=== PATIENT | female | born 2000 | race Caucasian/White ===

== ENCOUNTER → 2019-06-11 | Outpatient (CLI) | payer OTHER, SELFPAY ==
[2019-06-11 20:21] LABS: Chlamydia Trachomatis by PCR Negative (Negative); Neisserai gonorrhoeae by PCR Negative (Negative); Probe Check PASS; Sample Adequacy Control PASS; Specimen Processing Control PASS
== END | disposition home or self-care (01) ==
PROVIDERS: Referring Provider Obstetrics & Gynecology; Visit Provider Obstetrics & Gynecology
DX: Z11.3 Encounter for screening for infections with a predominantly sexual mode of transmission (principal)
CPT/HCPCS: 87491; 87591

== ENCOUNTER 2019-06-18 05:44 | Day surgery (SDC) | payer OTHER, SELFPAY ==
--- NOTE | 2019-06-17 22:15 | PCM.HP.BLA ---
History and Physical Date of Admission: 06/18/19 HISTORY OF PRESENT ILLNESS: On 06/16/2019, Opal Ochoa, a 18 year old female 0 0 0 0 0, presented for: -- Inevitable Miscarriage, Possible Molar -- U/S shows no IUP but rather tissue c/w possible molar . No pole noted. ALLERGIES: No Known Allergies MEDICATIONS HISTORY: REVIEW OF SYSTEMS: GENERAL - Denies fever, or chills SKIN - Denies skin changes EYES - Denies visual changes EARS - Denies difficulty hearing NOSE - Denies nasal congestion or bleeding MOUTH - Denies sore throat or difficulty swallowing NECK - Denies pain or swelling RESPIRATORY - Denies shortness of breath or wheezing CARDIOVASCULAR - Denies palpitations or chest pain GASTROINTESTINAL - slight nausea GENITOURINARY - Denies dysuria, frequency of urination, incontinence of urine MUSCULOSKELETAL - Denies joint or muscle pain NEUROLOGICAL - Denies localized numbness or weakness PSYCHIATRIC - Denies depression or anxiety ENDOCRINE - Denies heat or cold intolerance, weight loss or gain HEMATO-IMMUNOLOGIC - Denies excesive bleeding with cuts PAST HISTORY: Breast/Ovarian/Colon Cancers - Aunt had Breast Cancer approximately age 40-50 Infections - Had Vaccines Illnesses - asthma Accidents - None History of Abnormal PAPS - Never Hospitalizations - None MENSTRUAL HISTORY: LMP Known?- DefiniteAmount/Duration - 4 days, Regularity - Regular, Frequency - monthly days, LMP - 04/13/19, Age Onset Menarche - 9 PAST PREGNANCIES: Total Pregnancies - 1; Full Term Pregnancies - 0; Premature - 0; Abortions, Induced - 0; Abortions, Spontaneous - 0; Ectopics - 0; Multiple Births - 0; Living Children - 0 FAMILY HISTORY: Aunt - Carcinoma of breast; MaternalGrandparent - Ischemic heart disease; SOCIAL HISTORY: Alcohol Use - None Smoking - Never Diet - no special diet Lifestyle - moderate stress lifestyle and Exercise - active Seat Belt Use - always Employer - [employer] Illicit Drug Use - None Sexual Activity - Spouse-Sig Other Name - Jose Spouse-Sig 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 - PHYSICAL 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 Gestation Weeks: 9 BP Systolic: 110 BP Diastolic: 56 Weight: 117 Urine Dip Protein: - Urine Dip Glucose: - CONSTITUTIONAL - NAD, well nourished, and well developed SKIN - No rash, lesions, or ulcers HEENT - Normocephalic, PERRLA, EOMI NECK - No nodes, no nuchal rigidity and thyroid normal size and texture LYMPH NODES - Palpation of lymph nodes in neck and groins within normal limits LUNGS - CTA x2 without wheezes, crackles or rales CARDIAC - Regular rate and rhythm without rubs, murmurs, or gallops BREAST - No dominant masses, no tenderness, no axillary adenopathy, no nipple discharge, no skin changes ABDOMEN - Without hepatosplenomegaly, distention, masses, rebound, or guarding; normal bowel sounds; no hernias EXTREMITIES - No edema or calf tenderness NEUROLOGICAL - Cranial nerves II-XII grossly intact PSYCHIATRIC - A and O to time, place, person, mood and affect DETAILED PELVIC EXAM External Genital Vagina - non-tender without lesions Urethra/Urethral Meatus - non-tender Bladder - non-tender Vagina - vaginal palomo are pink and moist without loss of rugae and no evidence of atropy Cervix - without cervical motion tenderness and has normal size and features without evident lesions Uterus - enlarged uterus 8 wks, wt 125-150 g Adnexa - clear without massess or tenderness ASSESSMENT: 1. Spon Abort [employer] PLAN BY DIAGNOSIS: 1. Spon Abort [employer] No bleeding yet. Possible molar . Discussed options and plan to proceed with Suction D and E. Discussed RBAs and all questions answered. Essential Procedure Criteria Procedure Essential: Yes Criteria Note: On 05/19/2019 the [facility] [place] of [facility] ([facility]) Public Order signed by [facility] Director Edelmira Landrum M.D., regarding the Management of Non-Essential Surgeries and Procedures for the purpose of preserving Personal Protective Equipment (PPE) and critical hospital capacity and resources within [place] went into effect as of 05/20/2019 at 5:00PM. According to the [facility] Public Order: This action will remain in full force and effect until the State of Emergency declared by the Governor no longer exists or the Director of the [facility] rescinds or modifies this Order.. This [facility] order stated all non-essential or elective surgeries and procedures that utilize PPE should be delayed unless there is undue risk to the current or future health of a patient. After reviewing the aforementioned [facility] Public Order and the patients clinical case, I have determined that the scheduled procedure meets the criteria to go forward. Risk to Patient if Procedure Delayed: Risk of metastasis or progression of staging
[2019-06-18] VITALS (7 sets, daily range): BP systolic 101–111; BP diastolic 60–78; PULSE 50–80; RESP 16; TEMP 36.3–36.8; O2SAT 100; BMI 20.5
--- NOTE | 2019-06-18 | POC_PTH ---
PATIENT: HEMA JIANG LOC: [facility] U#:[id number] AGE/SX: 18/F ROOM: RE06/18/[address]: Dr. Regan Pink MD : [id number] BED: DIS: 06/18/2019 SPEC #: [id number] RECD: 06/19/19 10:46 STATUS: SONYA REYariel #: [id number] COLUMBA: 06/18/19 00:[address]: Regan Pink DEPT: SURGICAL PATHOLOGY RECD BY: Surjit Tong ENTERED: 06/19/19 10:46 SP TYPE: PROD CONC OTHR DR: No Primary Care Phys Tissues: Product of conception, NOS Procedures: Surgery Specimen Level IV HEADER OPERATION: Dilation and evacuation, suction PRE-OP DIAGNOSIS: Spontaneous ; possible molar TISSUE SUBMITTED: Products of conception MICROSCOPIC DIAGNOSIS Endometrium, curettage: Chorionic villi with hydropic change, decidualized stroma and trophoblastic cells consistent with products of conception. See Comment. AM:kendell 06/22/19 COMMENT The findings are consistent with partial mole. Clinical correlation is suggested. Case has been reviewed in consultation with Dr. Landis who concurs with the above diagnosis. IDC:FELIPE MICROSCOPIC DESCRIPTION Slides are reviewed. GROSS DESCRIPTION Received in fixative is one container labeled with the patient's name and designated products of conception. The specimen consists of multiple fragments of pink, hemorrhagic soft tissue that in aggregate measure 8 x 9 x 1.5 cm. tissue is not identified. Right Of Way Appraiser tissue is totally submitted in three cassettes. / SJ:kendell 06/19/19 TC:5 CPT:
[2019-06-18 06:21] LABS: Hematocrit 37.3 % (37-47); Hemoglobin 13.4 g/dL (12.0-15.0); Mean Corp Hgb Conc 35.9 g/dL (32-36); Mean Corpuscular Hgb 30.3 pg (27.0-32.0); Mean Corpuscular Volume 84.4 fL (81-99); Mean Platelet Vol. 8.9 fl (6.2-12.0); Platelet Count 244 K/mm3 (150-450); RBC Distribution Width CV 13.1 % (11.6-14.6); RBC Distribution Width SD 39.8 fl (35.1-43.9); Red Blood Count 4.42 M/mm3 (4.2-5.4); White Blood Count 7.1 K/mm3 (4.4-11.0)
[2019-06-18] MEDS: Lactated Ringers 1,000 ML 100 ML IV (06:40)
[2019-06-18 07:00] LABS: hCG Titer Quant., Serum 64019 mIU/mL (1-3)
--- NOTE | 2019-06-18 07:22 | PCM.OPRPT ---
Report of Operation Date of Procedure: 06/18/19 Pre-Operative Diagnosis: Inevitable Miscarriage, Possible More Post-Operative Diagnosis: Inevitable Miscarriage, Possible More Surgery/Procedure Performed:: Suction Dilation and Evacuation Description of Surgical Findings:: 8 cm endometrial cavity with products of conception. Type of Anesthesia:: MAC Anesthesiologist: Catarino Arreola Specimen's removed: Products of conception Estimated Blood Loss (mL): Minimal Fluids Replaced: Crystalloid Description of Procedure: Surgeon: Regan Pink MD, FACOG Indication: 18 year patient with incomplete AB at 9 weeks gestation with ultrasound showing possible molar . No pole is noted.. Pt has been counseled regarding the risks, benefits, and alternatives of this procedure and all questions were answered. Procedure: Patient was taken to the operating room where she was given IV sedation. The patient was prepped and draped in the usual sterile fashion. The anterior cervix was grasped with a tenaculum and cervix was dilated. An 8 mm suction curette was inserted into the cervix and all contents removed. Uterus was gently curetted and remaining tissue was removed by reinserting the suction curette. The uterus was then gently curetted and it was confirmed that all tissue had been removed. The patient tolerated the procedure well and was taken to the recovery room in satisfactory condition. Sponge, instruments and needle counts were all correct. There were no apparent complications of the surgery. Grafts/Implants Used: None - Complications None - Admit VTE Documentation VTE Present on Admission: Yes VTE Mechan Device Prophylaxis: SCD's
--- NOTE | 2019-06-18 07:25 | DCINST_ITS ---
Discharge Diet: No Restrictions Discharge Activity: Return to Normal Activity, May Shower, May Take a Tub Bath May resume sexual activity in: 2 weeks Call your doctor if you observe: Fever of 101 or Higher, Inability to urinate, Inability to have a bowel movement, Using more than one pad per hour Additional Instructions: Okay to use ibuprofen or Tylenol as needed at home for crampiness. Allergies/Adverse Reactions: Allergies No Known Allergies Allergy (Verified 06/18/19 06:26) Medications to take at Discharge Folic Acid 0.4 mg PO DAILY@0800 06/17/19 Pnv No.95/Ferrous Fum/Folic AC [ Caplet] 1 ea PO DAILY 06/17/19 Primary Care Physician: Care Physician,No Primary [Primary Care Provider] - Test Results: Test results from this visit will be discussed in further detail at your follow- up appointment, if applicable. Please Follow Up With: Regan Pink MD When: 2 to 3 weeks
--- NOTE | 2019-06-18 09:55 | SUR.PHASEII ---
IV bag with Pitocin from OR completed infusing
== END 2019-06-18 09:56 | disposition home or self-care (01) ==
LOC: SDC 05:49 → AC 05:49
PROVIDERS: Referring Provider Obstetrics & Gynecology; Visit Provider Obstetrics & Gynecology
PROC: (CPT 59812; principal; 2019-06-18 07:15)
DX: O03.4 Incomplete spontaneous abortion without complication (principal)
CPT/HCPCS: 59812; 84702; 85027; 86850; 86900; 86901; 88305; J7120

== ENCOUNTER → 2019-06-25 10:10 | Outpatient (CLI) | payer OTHER, SELFPAY ==
[2019-06-18 06:32] VITALS: BMI 20.5
[2019-06-25 12:51] LABS: hCG Titer Quant., Serum 1329 mIU/mL (1-3)
== END ==
PROVIDERS: Referring Provider Obstetrics & Gynecology; Visit Provider Obstetrics & Gynecology
DX: O08.89 Other complications following an ectopic and molar pregnancy (principal); N91.2 Amenorrhea, unspecified; Z3A.00 Weeks of gestation of pregnancy not specified
CPT/HCPCS: 36415; 84702

== ENCOUNTER 2019-07-02 14:09 | Outpatient (RCR) | payer OTHER, SELFPAY ==
[2019-06-18 06:32] VITALS: BMI 20.5
[2019-07-02 16:11] LABS: hCG Titer Quant., Serum 247 mIU/mL (1-3)
== END 2019-07-02 18:00 | disposition home or self-care (01) ==
LOC: LAB 14:09
PROVIDERS: Referring Provider Obstetrics & Gynecology; Visit Provider Obstetrics & Gynecology
DX: N91.2 Amenorrhea, unspecified (principal); O02.0 Blighted ovum and nonhydatidiform mole
CPT/HCPCS: 36415; 84702

== ENCOUNTER 2019-07-30 14:19 | Outpatient (RCR) | payer OTHER, SELFPAY ==
[2019-06-18 06:32] VITALS: BMI 20.5
[2019-07-09 14:06] LABS: hCG Titer Quant., Serum 54 mIU/mL (1-3)
[2019-07-16 10:58] LABS: hCG Titer Quant., Serum 16 mIU/mL (1-3)
[2019-07-23 15:35] LABS: hCG Titer Quant., Serum 7 mIU/mL (1-3)
[2019-07-30 15:42] LABS: Internal QC Validated? YES +Cl - CLEAR BKGD; Pregnancy, Serum, hCG Quali. NEGATIVE Negative
== END 2019-07-30 18:00 | disposition home or self-care (01) ==
LOC: LAB 14:19
PROVIDERS: Referring Provider Obstetrics & Gynecology; Visit Provider Obstetrics & Gynecology
DX: N91.2 Amenorrhea, unspecified (principal)
CPT/HCPCS: 36415; 84702; 84703

== ENCOUNTER 2019-08-31 09:52 | Outpatient (RCR) | payer OTHER, SELFPAY ==
[2019-06-18 06:32] VITALS: BMI 20.5
[2019-08-31 11:12] LABS: hCG Titer Quant., Serum < 1 mIU/mL (1-3)
== END 2019-08-31 18:00 | disposition home or self-care (01) ==
LOC: LAB 09:52
PROVIDERS: Referring Provider Obstetrics & Gynecology; Visit Provider Obstetrics & Gynecology
DX: N91.2 Amenorrhea, unspecified (principal)
CPT/HCPCS: 36415; 84702

== ENCOUNTER → 2019-12-14 18:04 | Outpatient (CLI) | payer OTHER, SELFPAY ==
[2019-06-18 06:32] VITALS: BMI 20.5
== END ==
PROVIDERS: Referring Provider Obstetrics & Gynecology; Visit Provider Obstetrics & Gynecology
DX: O98.519 Other viral diseases complicating pregnancy, unspecified trimester (principal); U07.1 COVID-19; Z3A.00 Weeks of gestation of pregnancy not specified
CPT/HCPCS: 87635; C9803; U0003

== ENCOUNTER → 2020-02-01 11:04 | Outpatient (CLI) | payer OTHER, SELFPAY ==
[2019-06-18 06:32] VITALS: BMI 20.5
[2020-02-09 20:56] LABS: CF, Screen Comment: (.)
== END ==
PROVIDERS: Visit Provider Obstetrics & Gynecology
DX: Z34.82 Encounter for supervision of other normal pregnancy, second trimester (principal); Z82.79 Family history of other congenital malformations, deformations and chromosomal abnormalities
CPT/HCPCS: 36415; 81220

== ENCOUNTER 2020-06-10 05:15 | Inpatient (IN) | payer OTHER, SELFPAY ==
[2019-06-18 06:32] VITALS: BMI 20.5
[2020-06-10] VITALS (26 sets, daily range): BP systolic 97–127; BP diastolic 48–91; PULSE 48–94; RESP 16; TEMP 36.5–37.1; O2SAT 98–99; BMI 25.0
[2020-06-10 04:40] LABS: Color, Urine Yellow (Yellow); Glucose, Dipstick Normal (Normal); Ketone-Dipstick Negative (Negative); Leukocyte Esterase-Dipstick Negative /ul (Negative); Nitrite-Dipstick Negative (Negative); Occult Blood-Urine Negative /ul (Negative); Protein-Dipstick Negative (Negative); Specific Gravity, Urine 1.005 (1.002-1.030); Urine Bilirubin Dipstick Negative (Negative); Urine Clarity Clear (Clear); Urine Urobilinogen Normal (Normal)
[2020-06-10 05:04] LABS: ROM Internal Control Test YES-OK TO RESULT pt. (Internal QC)
[2020-06-10 05:06] LABS: ROM Patient Test POSITIVE (Negative)
[2020-06-10] MEDS: Lactated Ringers 1,000 ML 50 ML IV (05:16)
[2020-06-10 05:32] LABS: Absolute Lymphocyte Count 1.77 X10^3/uL (0.83-4.51); Absolute Neutrophil Count 7.6 X10^3/uL (2.0-7.7); Basophil# 0.03 X10^3/uL; Basophil% 0.3 % (0-1); Eosinophil# 0.07 X10^3/uL; Eosinophils% 0.7 % (0-5); Hematocrit 33.4 % (37-47); Hemoglobin 11.4 g/dL (12.0-15.0); Lymphocyte # 1.77 X10^3/ul (4.0); Lymphocyte % 16.9 % (19-41); Mean Corp Hgb Conc 34.1 g/dL (32-36); Mean Corpuscular Hgb 30.3 pg (27.0-32.0); Mean Corpuscular Volume 88.8 fL (81-99); Mean Platelet Vol. 9.2 fl (6.2-12.0); Monocyte# 0.89 X10^3/uL; Monocyte% 8.5 % (0-10); NRBC Flagged by Analyzer 0 % (0-5); Neutrophil # 7.63 X10^3/uL (2.7-7.7); Neutrophil % 72.6 % (47-70); Platelet Count 249 K/mm3 (150-450); RBC Distribution Width CV 12.9 % (11.6-14.6); RBC Distribution Width SD 42.1 fl (35.1-43.9); Red Blood Count 3.76 M/mm3 (4.2-5.4); White Blood Count 10.5 K/mm3 (4.4-11.0)
[2020-06-10] MEDS: Betamethasone/Betamethasone 30 MG/5 ML Vial 12 MG IM (06:14)
[2020-06-10 07:26] LABS: Group B Strep DNA By PCR Negative (Negative); Internal Control PASS; Probe Check PASS; Specimen Processing Control PASS
--- NOTE | 2020-06-10 07:40 | PCM.HPOB.BLA ---
History and Physical Chief complaint: Leakage of fluid History of present illness: 19-year-old G2, P0 at 34 weeks and 1 day with MAXIMUS: 07/22/2019 1 x 10-week ultrasound arrives with leakage of clear fluid. Denies headache, visual changes, chest pain, shortness of breath, nausea, vomiting, right upper quadrant pain. Patient states good movement. complicated by partial mole and 06/18/2019 and patient did not wait the 6-month or 12-month interval between pregnancies after molar Obstetric history: G1: 9-week partial mole 06/18/2019 G2: Current Past medical history: None Medications: vitamin Past surgical history: D&C, wisdom teeth extraction Allergies: No known drug allergies Social history: Denies smoking, alcohol, drug use Family history: Denies history DVT or PE Review of systems: Besides above pertinent positives a full review of systems was performed and found to be negative Physical exam: Vital Signs Temp Pulse BP Pulse Ox 06/10/20 08:31 83 113/65 06/10/20 07:52 98.3 F 06/10/20 07:14 98.3 F 67 108/66 98 06/10/20 06:20 98.8 F 86 110/66 99 06/10/20 04:08 86 110/71 General: Normal-appearing no acute distress HEENT: Normocephalic atraumatic no cervical of adenopathy Cardiac/respiratory: Nonlabored breathing no use of accessory muscles Abdomen: Soft, nontender, gravid Extremities: No peripheral edema normal peripheral pulses Psych: Normal affect normal demeanor nonpressured speech Mom's Microbiology 06/10/20 Unknown Genital vaginal Group B Streptococcus Culture - Pending 06/10/20 04:30 Mucosa - Nose SARS-CoV-2 Antigen (Rapid) - Final Mom's Labs & Results 06/10/20 06/10/20 06/10/20 04:15 04:25 04:30 WBC RBC Hgb Hct MCV MCH MCHC RDW Std Deviation RDW Coeff of Terence Plt Count MPV Immature Gran % (Auto) Neut % (Auto) Lymph % (Auto) Clinch % (Auto) Eos % (Auto) Baso % (Auto) Absolute Neuts (auto) Absolute Lymphs (auto) Nucleated RBC % Urine Color Yellow Urine Clarity Clear Urine pH 7.0 Ur Specific [place] 1.005 Urine Protein Negative Urine Glucose (UA) Normal Urine Ketones Negative Urine Occult Blood Negative Urine Nitrite Negative Urine Bilirubin Negative Urine Urobilinogen Normal Ur Leukocyte Esterase Negative Vag Amniotic Fld Detect POSITIVE H Group B Strep DNA Negative Specimen Comment Not Reportable Blood Type Antibody Screen 06/10/20 06/10/20 05:16 05:16 WBC 10.5 RBC 3.76 L Hgb 11.4 L Hct 33.4 L MCV 88.8 MCH 30.3 MCHC 34.1 RDW Std Deviation 42.1 RDW Coeff of Terence 12.9 Plt Count 249 MPV 9.2 Immature Gran % (Auto) 1.000 H Neut % (Auto) 72.6 H Lymph % (Auto) 16.9 L Clinch % (Auto) 8.5 Eos % (Auto) 0.7 Baso % (Auto) 0.3 Absolute Neuts (auto) 7.6 Absolute Lymphs (auto) 1.77 Nucleated RBC % 0 Urine Color Urine Clarity Urine pH Ur Specific [place] Urine Protein Urine Glucose (UA) Urine Ketones Urine Occult Blood Urine Nitrite Urine Bilirubin Urine Urobilinogen Ur Leukocyte Esterase Vag Amniotic Fld Detect Group B Strep DNA Specimen Comment Blood Type A POSITIVE Antibody Screen NEGATIVE Labs Blood Type: A RH: POSITIVE RPR/VDRL/Syphilis Nonreactive Rubella status Non-immune HbSAg Negative Date Done: 12/24/19 Chlamydia Negative Gonorrhea Negative HIV/AIDS Non-Reactive Group B Strep: Collected on Admission Assessment and plan: 19-year-old G2, P0 at 34 weeks and 1 day with premature rupture of membranes Admit labor and delivery CEFM GBS unknown: To start penicillin even with negative NAAT per guidelines. Discussed with pediatricians PPROM: Needs induction/augmentation via Pitocin with gestational age 34 weeks. To contact performance architect. Educated patient on delivery/ infant. Routine orders Anesthesia to see
[2020-06-10] MEDS: Oxytocin 30 units/NS 500 ml 30 UNITS/500 ML IV.SOLN IV (08:30)
[2020-06-10] MEDS: Oxytocin 30 units/NS 500 ml 30 UNITS/500 ML IV.SOLN 334 UNITS IV (15:08)
--- NOTE | 2020-06-10 16:09 | PCM.OPRPT ---
Vaginal Delivery Maternal Presentation: Spontaneous Rupture of Membranes Amniotic Membrane Rupture Type: Spontaneous at home Amniotic Fluid Description: Clear Final MAXIMUS: 07/21/20 Final MAXIMUS Source: US <20 weeks Gestational age: 34 Weeks and 1 Days [place] doctor who attended delivery (if requested by OB): Wicho Lebron - 34 wks gestation Date of Procedure: 06/10/20 Pre-Operative Diagnosis: IUP, PPROM Post-Operative Diagnosis: IUP, PPROM Surgery/ Procedure Performed: Spontaneous Vaginal Delivery Type of Anesthesia: None Description of Procedure: Spontaneous vaginal delivery of a viable female with Apgars of 7/9 from an occiput anterior presentation with clear amniotic fluid and normal three-vessel placenta. First-degree midline episiotomy extended to a second-degree midline laceration repaired in layers with 3-0 Rapide suture under local. Sponges okay. Delivery physician: Regan Pink MD. Presentation: Vertex Placental Delivery Description: Spontaneous Placenta Disposition: [facility] Cord Vessel Description: 3 Vessels Cord Entanglement: Around neck x 1, loose Estimated Blood Loss: 250 cc Infant A gender: Female (1 minute): 7 (5 minute): 9 Episiotomy Description: Midline, 1st degree Laceration: Midline, 2nd degree Medications given after delivery: IV Pitocin Complications: None
--- NOTE | 2020-06-10 16:15 | DCINST_ITS ---
Discharge Diet: No Restrictions Discharge Activity: May Shower, May Take a Tub Bath May resume sexual activity in: 4-6 weeks Additional Activity Instructions:: Nothing in the vagina for 4-6 weeks. You may return to work/school in 6 weeks. Call your doctor if you observe: Inability to urinate, Inability to have a bowel movement, Using more than one pad per hour Additional Instructions: If you experience any of the following, contact your healthcare provider. * Bleeding that soaks a pad every hour for 2 hours * Fever 100.4 or higher * Unrelieved incision or abdominal pain * Swelling, redness, discharge or bleeding from your incision or episiotomy site * Your incision begins to separate * Problems urinating (including inability to urinate or burning while urinating). * Visual changes * Severe headache * Flu-like symptoms * Pain or redness in one of both of your breasts * Pain, warmth, tenderness or swelling in your legs, especially the calf area * Frequent nausea and vomiting * Symptoms of depression or anxiety If you experience any of the following, call 911 or go to the nearest Emergency Room. * Chest pain * Problems breathing * Seizure activity * Partial or complete paralysis of a body part, slurred speech, weakness or drooping of the face, or a sudden inability to walk or hold your balance Allergies/Adverse Reactions: Allergies No Known Allergies Allergy (Verified 06/18/19 06:26) Please Follow Up With: Regan Pink MD - [phone] When: Call to make an appointment with your doctor in 6 weeks. Primary Care Physician: Care Physician,No Primary [Primary Care Provider] - Test Results: Test results from this visit will be discussed in further detail at your follow- up appointment, if applicable.
--- NOTE | 2020-06-10 16:15 | PCM.DCVAG ---
Discharge Diet: No Restrictions Discharge Activity: May Shower, May Take a Tub Bath May resume sexual activity in: 4-6 weeks Additional Activity Instructions:: Nothing in the vagina for 4-6 weeks. You may return to work/school in 6 weeks. Call your doctor if you observe: Inability to urinate, Inability to have a bowel movement, Using more than one pad per hour Additional Instructions: If you experience any of the following, contact your healthcare provider. Bleeding that soaks a pad every hour for 2 hours Fever 100.4 or higher Unrelieved incision or abdominal pain Swelling, redness, discharge or bleeding from your incision or episiotomy site Your incision begins to separate Problems urinating (including inability to urinate or burning while urinating). Visual changes Severe headache Flu-like symptoms Pain or redness in one of both of your breasts Pain, warmth, tenderness or swelling in your legs, especially the calf area Frequent nausea and vomiting Symptoms of depression or anxiety If you experience any of the following, call 911 or go to the nearest Emergency Room. Chest pain Problems breathing Seizure activity Partial or complete paralysis of a body part, slurred speech, weakness or drooping of the face, or a sudden inability to walk or hold your balance Allergies/Adverse Reactions: Allergies No Known Allergies Allergy (Verified 06/18/19 06:26) Please Follow Up With: Regan Pink MD - [phone] When: Call to make an appointment with your doctor in 6 weeks. Primary Care Physician: Care Physician,No Primary [Primary Care Provider] - Test Results: Test results from this visit will be discussed in further detail at your follow-up appointment, if applicable.
[2020-06-10] MEDS: Ibuprofen 600 MG Tablet PO ×2 (16:28→23:51)
[2020-06-10] MEDS: 0.9% Saline Lock 10 ML Syringe IV (18:06)
--- NOTE | 2020-06-10 20:28 | NURSING ---
IBCLC round, mother report she feels very comfortable with the pumping equipment and plans to set an alarm and pump every 3 hours and dad plans to bring the milk to nursery right away (SCN) will continue to round and provide support as needed. Using a 21mm pump flange for pumping
[2020-06-10] MEDS: Acetaminophen 500 MG Tablet 1000 MG PO (21:30)
[2020-06-11 04:10] VITALS: BP 87/57; PULSE 48; RESP 16; TEMP 36.6
[2020-06-11] MEDS: Ibuprofen 600 MG Tablet PO ×2 (06:32→12:33)
[2020-06-11 08:30] VITALS: BP 97/61; PULSE 57; RESP 16; TEMP 36.4; O2SAT 97
[2020-06-11] MEDS: Acetaminophen 500 MG Tablet 1000 MG PO ×2 (08:50→17:19)
--- NOTE | 2020-06-11 09:07 | PCM.PN.OB ---
Subjective: Patient without complaints. Pumping for baby in special care nursery. Minimal vaginal bleeding reported. - Physical Exam Vitals/I&O's: Vital Signs Temp Pulse Resp BP Pulse Ox 97.5 F L 57 L 16 97/61 97 06/11/20 08:30 06/11/20 08:30 06/11/20 08:30 06/11/20 08:30 06/11/20 08:30 Oxygen Delivery Method Room Air Weight: 146 lb Body Mass Index (BMI) 25.0 Intake and Output for Last 24 Hours 06/09/20 06/10/20 06/11/20 23:59 23:59 23:59 Intake Total 2245.82 / 2245.82 Output Total 850 / 850 Balance 1395.82 / 1395.82 Microbiology Past 72 Hours 06/10/20 04:30 Mucosa - Nose SARS-CoV-2 Antigen (Rapid) - Final Current Medications Acetaminophen (Acetaminophen 500 Mg Tablet) 1,000 mg PO Q8H PRN PRN PRN Reason: Pain Score 1-3 Last Admin: 06/11/20 08:50 Dose: 1,000 mg Documented by: Bisacodyl (Bisacodyl 10 Mg Suppository) 10 mg RC UD PRN PRN Reason: If no BM Dibucaine (Dibucaine 30 Gm Tube) 1 applic TOPICAL TID PRN PRN; Protocol PRN Reason: Discomfort Hydrocortisone (Hydrocortisone 2.5% Crm) 1 applic TOPICAL TID PRN PRN; Protocol PRN Reason: Discomfort Ibuprofen (Ibuprofen 600 Mg Tablet) 600 mg PO Q6H PRN PRN PRN Reason: Pain Score 1-3 Last Admin: 06/11/20 06:32 Dose: 600 mg Documented by: Measles/Mumps/Rubella Vaccine Live (Measles,Mumps&Rubella Vaccine 0.5 Ml Vial) 0.5 ml SC .ONCE ONE Stop: 06/11/20 10:01 Last Admin: 06/11/20 08:51 Dose: 0.5 ml Documented by: Methylergonovine Maleate (Methylergonovine 0.2 Mg/Ml Ampul) 0.2 mg IM X1 PRN PRN Reason: Excess bleeding/uterine atony Ondansetron HCl (Ondansetron 4 Mg/2 Ml Vial) 4 mg IV Q4H PRN PRN PRN Reason: Nausea Oxycodone HCl (Oxycodone 5 Mg Tablet) 5 - 10 mg PO Q4H PRN PRN PRN Reason: Pain Score 4-10 Senna/Docusate Sodium (Senna/Docusate Sodium 1 Tablet) 1 - 2 tablet PO DAILY PRN PRN PRN Reason: Constipation Simethicone (Simethicone 80 Mg Tablet) 80 mg PO PCHS PRN PRN Reason: Indigestion/Stomach pain Sodium Chloride (0.9% Saline Lock 10 Ml Syringe) 5 - 15 ml IV UD PRN PRN Reason: SALINE FLUSH Last Admin: 06/10/20 18:06 Dose: 10 ml Documented by: Zolpidem Tartrate (Zolpidem Tartrate 5 Mg Tablet) 5 mg PO QHS PRN PRN PRN Reason: Insomnia Medical Necessity - Tobacco Use Smoking Status: Never smoker Assessment/Plan Doing well post day #1 status post routine spontaneous vaginal delivery at 34+ weeks gestation. Continuing present care.
[2020-06-11 12:38] VITALS: BP 94/37; PULSE 51; RESP 14; TEMP 36.2; O2SAT 99
[2020-06-11 16:00] VITALS: BP 103/57; PULSE 59; RESP 16; TEMP 36.1
[2020-06-11 20:10] VITALS: BP 99/58; PULSE 61; RESP 16; TEMP 36.8
[2020-06-12 02:00] VITALS: BP 100/53; PULSE 66; RESP 16; TEMP 36.9
[2020-06-12] MEDS: Ibuprofen 600 MG Tablet PO ×2 (06:04→12:37)
[2020-06-12 08:00] VITALS: BP 97/58; PULSE 74; RESP 18; TEMP 36.3; O2SAT 97
--- NOTE | 2020-06-12 09:16 | PN.OBGYN_ITS ---
Subjective: Patient without complaints. Pumping going well. Minimal vaginal bleeding. Ready to be discharged to [facility] status. - Physical Exam Vitals/I&O's: Vital Signs Temp Pulse Resp BP Pulse Ox 97.4 F L 74 18 97/58 L 97 06/12/20 08:00 06/12/20 08:00 06/12/20 08:00 06/12/20 08:00 06/12/20 08:00 Oxygen Delivery Method Room Air Weight: 146 lb Body Mass Index (BMI) 25.0 Intake and Output for Last 24 Hours 06/10/20 06/11/20 06/12/20 23:59 23:59 23:59 Intake Total 2245.82 / 2245.82 Output Total 850 / 850 Balance 1395.82 / 1395.82 Microbiology Past 72 Hours 06/10/20 04:30 Mucosa - Nose SARS-CoV-2 Antigen (Rapid) - Final Current Medications Acetaminophen (Acetaminophen 500 Mg Tablet) 1,000 mg PO Q8H PRN PRN PRN Reason: Pain Score 1-3 Last Admin: 06/11/20 17:19 Dose: 1,000 mg Documented by: Bisacodyl (Bisacodyl 10 Mg Suppository) 10 mg RC UD PRN PRN Reason: If no BM Dibucaine (Dibucaine 30 Gm Tube) 1 applic TOPICAL TID PRN PRN; Protocol PRN Reason: Discomfort Hydrocortisone (Hydrocortisone 2.5% Crm) 1 applic TOPICAL TID PRN PRN; Protocol PRN Reason: Discomfort Ibuprofen (Ibuprofen 600 Mg Tablet) 600 mg PO Q6H PRN PRN PRN Reason: Pain Score 1-3 Last Admin: 06/12/20 06:04 Dose: 600 mg Documented by: Methylergonovine Maleate (Methylergonovine 0.2 Mg/Ml Ampul) 0.2 mg IM X1 PRN PRN Reason: Excess bleeding/uterine atony Ondansetron HCl (Ondansetron 4 Mg/2 Ml Vial) 4 mg IV Q4H PRN PRN PRN Reason: Nausea Oxycodone HCl (Oxycodone 5 Mg Tablet) 5 - 10 mg PO Q4H PRN PRN PRN Reason: Pain Score 4-10 Senna/Docusate Sodium (Senna/Docusate Sodium 1 Tablet) 1 - 2 tablet PO DAILY PRN PRN PRN Reason: Constipation Simethicone (Simethicone 80 Mg Tablet) 80 mg PO PCHS PRN PRN Reason: Indigestion/Stomach pain Sodium Chloride (0.9% Saline Lock 10 Ml Syringe) 5 - 15 ml IV UD PRN PRN Reason: SALINE FLUSH Last Admin: 06/10/20 18:06 Dose: 10 ml Documented by: Zolpidem Tartrate (Zolpidem Tartrate 5 Mg Tablet) 5 mg PO QHS PRN PRN PRN Reason: Insomnia Medical Necessity - Tobacco Use Smoking Status: Never smoker Assessment/Plan Doing well day #2 status post routine spontaneous vaginal delivery at 34 weeks gestation. Will discharge to home and hotel with routine instructions
[2020-06-12] MEDS: Acetaminophen 500 MG Tablet 1000 MG PO (09:45)
[2020-06-12 12:38] VITALS: BP 96/57; PULSE 74; RESP 16; TEMP 36.3; O2SAT 95
--- NOTE | 2020-06-12 13:10 | NURSING ---
Pt. to courtesy stay due to baby in SCN.
== END 2020-06-12 13:00 | disposition home or self-care (01) | DRG 807 ==
LOC: WPOUT 05:25 → WP 05:25
PROVIDERS: Admitting Provider Obstetrics & Gynecology; Referring Provider Obstetrics & Gynecology; Visit Provider Obstetrics & Gynecology
DX: O42.013 Preterm premature rupture of membranes, onset of labor within 24 hours of rupture, third trimester (principal); Z37.0 Single live birth; O69.81X0 Labor and delivery complicated by cord around neck, without compression, not applicable or unspecified; O70.1 Second degree perineal laceration during delivery; Z3A.34 34 weeks gestation of pregnancy
CPT/HCPCS: 59025; 59050; 76815; 81002; 84112; 85025; 86850; 86900; 86901; 87081; 87426; 87653; 99218; J7120; A4216; G0378; J0702

== ENCOUNTER 2022-03-01 16:30 | Outpatient (CLI) | payer BC, SELFPAY ==
[2022-03-05 06:07] LABS: Chlamydia By Nucleic Acid AMP Negative (Negative)
[2022-03-05 16:19] LABS: Gonococcus By Nucleic Acid AMP Negative (Negative)
[2022-03-09 18:18] LABS: HPV Reflexed? NOT INDICATED
== END 2022-03-01 23:59 | disposition home or self-care (01) ==
LOC: LABSPEC 16:33
PROVIDERS: Referring Provider Obstetrics & Gynecology; Visit Provider Obstetrics & Gynecology
DX: Z34.90 Encounter for supervision of normal pregnancy, unspecified, unspecified trimester (principal); N89.8 Other specified noninflammatory disorders of vagina; Z12.4 Encounter for screening for malignant neoplasm of cervix
CPT/HCPCS: 87070; 87086; 87088; 87205; 87491; 87591; 88175; G0145

== ENCOUNTER → 2022-03-28 | Outpatient (CLI) | payer BC, SELFPAY ==
[2022-03-28 14:19] LABS: Absolute Lymphocyte Count 1.81 X10^3/uL (0.83-4.51); Absolute Neutrophil Count 6.4 X10^3/uL (2.0-7.7); Basophil# 0.02 X10^3/uL; Basophil% 0.2 % (0-1); Eosinophil# 0.06 X10^3/uL; Eosinophils% 0.7 % (0-5); Hematocrit 33.6 % (37-47); Hemoglobin 11.9 g/dL (12.0-15.0); Lymphocyte # 1.81 X10^3/ul (0.83-4.51); Lymphocyte % 20.2 % (19-41); Mean Corp Hgb Conc 35.4 g/dL (32-36); Mean Corpuscular Hgb 30.7 pg (27.0-32.0); Mean Corpuscular Volume 86.8 fL (81-99); Mean Platelet Vol. 8.6 fl (6.2-12.0); Monocyte# 0.58 X10^3/uL; Monocyte% 6.5 % (0-10); NRBC Flagged by Analyzer 0 % (0-5); Neutrophil # 6.42 X10^3/uL (2.7-7.7); Neutrophil % 71.8 % (47-70); Platelet Count 261 K/mm3 (150-450); RBC Distribution Width CV 13.8 % (11.6-14.6); RBC Distribution Width SD 43.6 fl (35.1-43.9); Red Blood Count 3.87 M/mm3 (4.2-5.4); White Blood Count 8.9 K/mm3 (4.4-11.0)
[2022-03-28 16:52] LABS: HIV - WCH Non-Reactive (Nonreactive); Hepatitis B Surface Antigen Non-Reactive (Nonreactive); Hepatitis C Antibody Non-Reactive (Nonreactive); Rubella IgG Reactive (Nonreactive); Syphilis Antibodies Non-reactive
== END | disposition home or self-care (01) ==
PROVIDERS: Referring Provider Registered Nurse; Visit Provider Registered Nurse
DX: Z34.90 Encounter for supervision of normal pregnancy, unspecified, unspecified trimester (principal)
CPT/HCPCS: 36415; 85025; 86703; 86762; 86780; 86803; 86850; 86900; 86901; 87340

== ENCOUNTER → 2022-05-23 | Outpatient (CLI) | payer BC, SELFPAY | END | disposition home or self-care (01) | LOC: PSN 08:48 | PROVIDERS: Referring Provider Nurse Practitioner Women's Health; Visit Provider Nurse Practitioner Women's Health | DX: R07.9 Chest pain, unspecified (principal) | CPT/HCPCS: 93005 ==

== ENCOUNTER 2022-05-29 19:45 | Outpatient (CLI) | payer BC, SELFPAY ==
--- NOTE | 2022-05-29 20:11 | OB.TRI.PN ---
Progress Notes Date of Service: 05/29/22 Progress Note: at 23.6 weeks for IM injection of celestone 12mg for history of . Charges/Coding Procedures Urinary/Genital [id number]: No Charge
[2022-05-29 20:13] VITALS: BP 107/61; PULSE 88
[2022-05-29 20:17] VITALS: BMI 25.3
[2022-05-29] MEDS: Betamethasone/Betamethasone 30 MG/5 ML Vial 12 MG IM (20:22)
== END 2022-05-29 20:25 | disposition home or self-care (01) ==
LOC: WPOUT 20:01 → WP 20:02
PROVIDERS: Referring Provider Obstetrics & Gynecology; Visit Provider Obstetrics & Gynecology
DX: O09.212 Supervision of pregnancy with history of pre-term labor, second trimester (principal); Z3A.23 23 weeks gestation of pregnancy
CPT/HCPCS: 96372; 99221; G0378; J0702

== ENCOUNTER → 2022-06-18 | Outpatient (CLI) | payer BC, SELFPAY ==
[2022-06-18 14:12] LABS: Absolute Neutrophil Count 6.6 X10^3/uL (2.0-7.7); Basophil# 0.01 X10^3/uL; Basophil% 0.1 % (0-1); Eosinophil# 0.06 X10^3/uL; Eosinophils% 0.7 % (0-5); Hematocrit 31.4 % (37-47); Hemoglobin 11.5 g/dL (12.0-15.0); Lymphocyte % 16.9 % (19-41); Mean Corp Hgb Conc 36.6 g/dL (32-36); Mean Corpuscular Hgb 32.8 pg (27.0-32.0); Mean Corpuscular Volume 89.5 fL (81-99); Mean Platelet Vol. 8.6 fl (6.2-12.0); Monocyte# 0.55 X10^3/uL; Monocyte% 6.2 % (0-10); NRBC Flagged by Analyzer 0 % (0-5); Neutrophil # 6.64 X10^3/uL (2.7-7.7); Neutrophil % 74.7 % (47-70); Platelet Count 201 K/mm3 (150-450); RBC Distribution Width CV 13.5 % (11.6-14.6); RBC Distribution Width SD 43.6 fl (35.1-43.9); Red Blood Count 3.51 M/mm3 (4.2-5.4); White Blood Count 8.9 K/mm3 (4.4-11.0)
[2022-06-18 14:23] LABS: Glucose Challenge Gest 1H 50g 155 mg/dL (70-140)
[2022-06-18 15:32] LABS: HIV - WCH Non-Reactive (Nonreactive); Syphilis Antibodies Non-reactive
== END | disposition home or self-care (01) ==
LOC: PAVLAB 13:42
PROVIDERS: Referring Provider Obstetrics & Gynecology; Visit Provider Obstetrics & Gynecology
DX: O09.90 Supervision of high risk pregnancy, unspecified, unspecified trimester (principal); Z3A.00 Weeks of gestation of pregnancy not specified
CPT/HCPCS: 36415; 82950; 85025; 86703; 86780

== ENCOUNTER → 2022-06-20 | Outpatient (CLI) | payer BC, SELFPAY ==
[2022-06-20 08:48] LABS: Glucose GTT-Gestation. Fasting 83 mg/dL (<105)
[2022-06-20 09:31] LABS: Glucose GTT-Gestational 1 Hr 179 mg/dL (<190)
[2022-06-20 10:54] LABS: Glucose GTT-Gestational 2 Hr 131 mg/dL (<165)
[2022-06-20 12:02] LABS: Glucose GTT-Gestational 3 Hr 101 L (<145)
== END | disposition home or self-care (01) ==
LOC: LAB 07:55
PROVIDERS: PCP Family Medicine; Referring Provider Registered Nurse; Visit Provider Registered Nurse
DX: R73.09 Other abnormal glucose (principal)
CPT/HCPCS: 36415; 82951; 82952

== ENCOUNTER 2022-07-28 20:55 | Outpatient (CLI) | payer BC, SELFPAY ==
[2022-07-28 21:45] VITALS: BP 109/61; PULSE 87; TEMP 37.2; O2SAT 94
[2022-07-28] MEDS: Lactated Ringers 1,000 ML 999 ML IV (22:15)
[2022-07-28 22:36] VITALS: BMI 26.4
[2022-07-28 22:37] LABS: Amphetamine Urine VISTA NEGATIVE (<1000 ng/mL); Barbiturate Urine VISTA NEGATIVE (< 200 ng/mL); Benzodiazepine Urine VISTA NEGATIVE (< 200 ng/mL); Cocaine Urine VISTA NEGATIVE (< 300 ng/mL); Ecstacy Urine VISTA NEGATIVE (< 500 ng/mL); Methadone Urine VISTA NEGATIVE (< 300 ng/mL); PCP Urine VISTA NEGATIVE (< 25 ng/mL); THC Urine VISTA NEGATIVE (< 50 ng/mL); Vista UDS pH Range 5
--- NOTE | 2022-07-28 22:52 | OB.TRI.HP_ITS ---
HPI - General HPI Narrative HEMA JIANG, is a 22 F who presents at 32+3 with contractions q5 minutes with a sudden gush of fluid around 6pm endorses active fetus, denies vaginal bleeding. history of PTL and delivery at 34 weeks with daughter. at 23.6 had decreased CL and received betamethasone x2 and was placed on vaginal progesterone. Maternal Data Information MAXIMUS Calculator Estimated Delivery Date Method Current WG Current Estimate 09/19/22 LMP (Certain) 32w 3d PFSH PFSH Home Medications progesterone micronized 200 mg capsule (Prometrium) 200 mg vaginal DAILY hx labor 07/28/22 [History Last Taken 07/27/22] Allergy/AdvReac Type Severity Reaction Status Date / Time No Known Allergies Allergy Verified 07/28/22 22:20 Family History Aunt Breast cancer, Onset Age: 40 Maternal- Not genetic Surgical History H/O dilation and curettage History of wisdom tooth extraction Social History adopted: No household members: spouse and children housing: house number of children: 1 current occupational status: employed 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 current occupational exposures/hazards: No pets and animals: No history of recent travel: Yes ([place] February) out of state: Yes out of country: No sexually active: Yes Smoking Status: Never smoker alcohol intake: never substance use type: does not use well-balanced diet: daily or most days caffeine: Yes Type: carbonated beverages Number of servings: 1 and coffee eating out: rarely or never during the past year weight has: remained stable what type of physical activity do you participate in: none kavita/anabaptist: Rastafari seatbelt use: always do you feel safe at home: Yes additional social history: Jose- aren History 3 Elective abortions Hx Para 1 Spontaneous abortions Hx # Term Pregnancies Ectopic pregnancies Hx # Pregnancies Multiple births # of living children 1 Past Pregnancies Del. Date Name GA/Weeks Outcome Route Bth Weight Gen Labor Lgth Anesthesia Del Locatn Provider FOB 06/18/19 Molar 06/10/20 Dejesus live - 5#0oz Female 16 hours non e [facility] Apryl Garcia Delivery Date: 06/10/20 Last Updated by: Katherin Mcrae pitocin for no progression Visit Details Expected Delivery Route/Plan Labor Preferences- CB/BF classes: [] labor support person: [] labor intervention preferences: [] pain management options preferred: [] cut cord/dad catch: [] : [] PP control planned: [] discussed possible routes of delivery and associated risks: [] special requests: [] Plans Covid status: [] Flu vaccine: [] Tdap vaccine: [] Rhogam: [] LARC form signed: [] Problem list reviewed and updated with the most current plan of care details and appropriate orders placed. Relevant counseling for the gestational age provided. Continue routine care and follow up unless otherwise noted in visit notes/problem list details OB Flowsheet Initial Weight: Not Recorded Date -?-?-?-?-?-?-?-?-?-?-?-?- EGA Weight BP Urine Prot -?--?-?-?-?-?-?-?-?-?-?-?- Glucose FHR FuHt Pres Dilation -?-?-?-?-?-?-?--?-?-?-?-?- Effaced St Visit Note 03/01/22 -?-?-?-?-?-?-?-?-?-?-?-?- 11w 1d 130 lb 4 oz 118/70 -?-?-?-?-?-?-?-?-?-?-?-?- 168 -?-?-?-?-?-?-?-?-?-?-?-?- SM- CRL cons wit h LMP SM- CRL 4.3cm cons with LMP 03/28/22 -?-?-?-?-?-?-?-?-?--?-?-?- 15w 0d 130 lb 8 oz 100/64 Nega tive -?-?-?-?-?-?-?-?-?-?-?-?- Negative 150 -?-?-?-?-?-?-?-?-?-?-?-?- LC- no vb/crampi ng. AFP ordered, has anatomy scan with mfm ordered w/ CL. 04/25/22 -?-?-?-?-?-?-?-?-?-?-?-?- 19w 0d 135 lb 98/53 Negative -?-?-?-?-?-?-?-?-?-?-?-?- Negative 143 22 -?-?-?-?-?-?-?-?-?-?-?-?- JV- AFP lab stil l pending, will need to check with lab. has anatomy scan tomorrow. 05/21/22 -?-?-?-?-?-?-?-?-?-?-?-?- 22w 5d 138 lb 8 oz 103/60 Nega tive -?-?-?-?-?-?-?-?-?-?-?-?- Negative 156 -?-?-?-?-?-?-?-?-?-?-?-?- MH-No Vb. Nikhil Garay Has had episodes of bilateral arm numbness and chest pain. EKG today and cardiology consult. To ED if recurs. 06/07/22 -?-?-?-?-?-?-?-?-?-?-?-?- 25w 1d 141 lb 8 oz 103/68 Nega tive -?-?-?-?-?-?-?-?--?-?-?-?- Negative 145 25 -?-?-?-?-?-?-?-?-?-?-?-?- SM- no vb lof go od fm no regular ctx 06/18/22 -?-?-?-?-?-?-?-?-?-?-?-?- 26w 5d 144 lb 122/71 Negative -?-?-?-?-?-?-?-?-?-?-?-?- Negative 141 26 -?-?-?-?-?-?-?-?-?-?-?-?- Lc- elevated GTT , 3 hour ordered. no vb/lof/ctx. good fm. 07/05/22 -?-?-?-?-?-?-?-?-?-?-?-?- 29w 1d 145 lb 4 oz 113/72 Nega tive -?-?-?-?-?-?-?-?-?-?-?-?- Negative 143 28 0 -?-?-?-?-?-?-?-?-?-?-?-?- JV- pt has an ea r infection and was given drops by urgent care but not getting better. will try augmentin. she wants to be checked for possible dilation due to her history of early delivery. 07/20/22 -?-?-?-?-?-?-?-?-?-?-?-?- 31w 2d 149 lb 6 oz 102/66 Nega tive -?-?-?-?-?-?-?-?-?-?-?-?- Negative 144 30 -?-?-?-?-?-?-?-?-?-?-?-?- JV- still has ea r infection problems and some hearing loss in the left ear. will consult ENT. no lof, vaginal bleeding, or dec fm Physical Exam Const alert, oriented x3 and no apparent distress Resp normal respiratory effort, normal air movement, no retractions and no use of accessory muscles Cardio regular rate and regular rhythm GI soft to palpation and non-tender Inspection: Palpation: soft Rectal Exam: deferred no CVA tenderness and external exam normal Bimanual Exam - Vag & Uterus: uterus non-tender and other gravid uterus, normal for gestational age OB / External & Speculum: Negative for herpetic lesions Manual OB Exam: estimated gestational size appropriate and presentation cephalic Amniotic Fluid: no amniotic fluid noted Extremity normal to inspection and full ROM Neuro Motor Exam: strength 5/5 throughout and muscle tone normal throughout Deep Tendon Reflexes: Rt Patellar (L4): 2+ and Lt Patellar (L4): 2+ NST FHR Rate Baby A Baseline: 115 Variability:: Moderate Accelerations:: 15 x 15 Decelerations:: None NST Reactive:: Yes FHR Category:: Category I Assessment & Plan (1) UTI in : COMMENT: 07/28/2022 started macrobid repeat urine culture in 4 weeks PLAN: Plan Patient presents for triage evaluation secondary to contractions. SSE completed and ROM + negative, ffn obtained, urine culture and tox screen completed. SVE:03/23/2. contractions spacing with IV fluids and pt was sleeping comfortably. FHT: Moderate variability reactive no decelerations category I tracing [place]: irregular Contractions Assessment and plan: Reactive NST, reassuring maternal and status patient discharged to home to follow-up in office. Urine dip indicates UTI, will treat with macrobid 100mg BIDx5 days. See problem list details for additional plan information. Charges/Coding Visit Charges Office Visits / Consults: 80349 OV L3 Est Procedures Urinary/Genital 52xxx-59xxx: 84569-40 non-stress test Interp Multi Select Codes Urinary/Genital Urinary/Genital CPT Codes: 59496-60 non-stress test Interp
[2022-07-28 22:59] LABS: Color, Urine Straw (Yellow); Glucose, Dipstick Normal (Normal); Ketone-Dipstick Negative (Negative); Leukocyte Esterase-Dipstick 25 /ul (Negative); Nitrite-Dipstick Negative (Negative); Occult Blood-Urine Negative /ul (Negative); Protein-Dipstick Negative (Negative); Urine Bilirubin Dipstick Negative (Negative); Urine Clarity Clear (Clear); Urine Urobilinogen Normal (Normal)
[2022-07-28 23:01] LABS: ROM Internal Control Test YES-OK TO RESULT pt. (Internal QC)
[2022-07-28 23:02] LABS: ROM Patient Test Negative (Negative)
[2022-07-28 23:03] LABS: Fetal Fibronectin POSITIVE
[2022-07-28 23:37] LABS: Group B Strep DNA By PCR Negative (Negative); Internal Control PASS; Probe Check PASS; Specimen Processing Control PASS
== END 2022-07-28 23:55 | disposition home or self-care (01) ==
LOC: WP 21:06 → WPOUT 21:06
PROVIDERS: PCP Family Medicine; Referring Provider Registered Nurse; Visit Provider Registered Nurse
DX: O47.03 False labor before 37 completed weeks of gestation, third trimester (principal); Z3A.32 32 weeks gestation of pregnancy; Z87.59 Personal history of other complications of pregnancy, childbirth and the puerperium
CPT/HCPCS: 96360; 59025; 59050; 80307; 81002; 82731; 84112; 87070; 87081; 87086; 87088; 87205; 87653; 99221; J7120; G0378

== ENCOUNTER 2022-08-02 14:10 | Outpatient (CLI) | payer BC, SELFPAY ==
[2022-08-02] MEDS: Betamethasone/Betamethasone 30 MG/5 ML Vial 12 MG IM (14:51)
--- NOTE | 2022-09-18 10:31 | PCM.PN.BLA ---
Progress Note note from 08/02/2022: patient presents to labor and delivery for her second celestone injection. This is being performed for threatened labor. She has no complaints of current painful contractions, bleeding, or loss of fluid. nurses were instructed to inject 12mg celestone IM x 1 , (second injection) Assessment & Plan Assessment/Plan (1) Threatened labor:
== END 2022-08-02 15:00 | disposition home or self-care (01) ==
LOC: WPOUT 14:18 → WP 14:18
PROVIDERS: PCP Family Medicine; Referring Provider Obstetrics & Gynecology; Visit Provider Obstetrics & Gynecology
DX: O47.00 False labor before 37 completed weeks of gestation, unspecified trimester (principal); Z87.59 Personal history of other complications of pregnancy, childbirth and the puerperium; Z82.79 Family history of other congenital malformations, deformations and chromosomal abnormalities; Z3A.33 33 weeks gestation of pregnancy
CPT/HCPCS: 96372; J0702

== ENCOUNTER → 2022-08-17 | Outpatient (CLI) | payer BC, SELFPAY | END | disposition home or self-care (01) | PROVIDERS: PCP Family Medicine; Visit Provider Obstetrics & Gynecology | DX: O09.90 Supervision of high risk pregnancy, unspecified, unspecified trimester (principal); Z3A.00 Weeks of gestation of pregnancy not specified | CPT/HCPCS: 87077; 87081; 87186 ==

== ENCOUNTER 2022-08-19 16:00 | Outpatient (CLI) | payer BC, SELFPAY ==
[2022-08-19] VITALS (41 sets, daily range): BP systolic 89–112; BP diastolic 51–67; PULSE 65–101; TEMP 36.6–37; O2SAT 96–100; BMI 27.4
[2022-08-19 17:08] LABS: ROM Internal Control Test YES-OK TO RESULT pt. (Internal QC); ROM Patient Test Negative (Negative); Record Kit Lot#, ROM+ K1374
--- NOTE | 2022-08-19 19:06 | HP.PCM.OB_ITS ---
HPI - General General Date of Admission: 08/19/22 HPI Narrative HEMA JIANG, is a 22 y/o @ 35 weeks 4 days who presents to L&D with contractions and some loss of fluid. Her rom plus was negative and a water bag was felt by the nurse that did her exam. She was observed for the contractions but found to have slight cervical change. The decision was made to admit for observation. She received 2 dose of celestone prior to 30 weeks and a rescue dose at 33 weeks due to persistent contractions this and a history of rupture of membranes and delivery at 34 weeks last . Maternal Data Information MAXIMUS Calculator Estimated Delivery Date Method Current WG Current Estimate 09/19/22 LMP (Certain) 35w 4d PFSH PFSH Home Medications NK 08/19/22 [History Last Taken Unknown] Allergy/AdvReac Type Severity Reaction Status Date / Time No Known Allergies Allergy Verified 08/02/22 13:25 Family History Aunt Breast cancer, Onset Age: 40 Maternal- Not genetic Surgical History H/O dilation and curettage History of wisdom tooth extraction Social History adopted: No household members: spouse and children housing: house number of children: 1 current occupational status: employed 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 current occupational exposures/hazards: No pets and animals: No history of recent travel: Yes ([place] February) out of state: Yes out of country: No sexually active: Yes Smoking Status: Never smoker alcohol intake: never substance use type: does not use well-balanced diet: daily or most days caffeine: Yes Type: carbonated beverages Number of servings: 1 and coffee eating out: rarely or never during the past year weight has: remained stable what type of physical activity do you participate in: none kavita/rastafarian: Muslim seatbelt use: always do you feel safe at home: Yes additional social history: Carlos younger History 3 Elective abortions Hx Para 1 Spontaneous abortions Hx # Term Pregnancies Ectopic pregnancies Hx # Pregnancies Multiple births # of living children 1 Past Pregnancies Del. Date Name GA/Weeks Outcome Route Bth Weight Infant Gen Labor Lgth Anesthesia Del Locatn Provider FOB 06/18/19 Molar 06/10/20 Dejesus live - 5#0oz Female 16 hours non e [facility] Apryl Garcia Delivery Date: 06/10/20 Last Updated by: Katherin Mcrae pitocin for no progression Visit Details Expected Delivery Route/Plan Labor Preferences- CB/BF classes: [] labor support person: [] labor intervention preferences: [] pain management options preferred: [] cut cord/dad catch: [] : [] PP control planned: [] discussed possible routes of delivery and associated risks: [] special requests: [] Plans Covid status: [] Flu vaccine: [] Tdap vaccine: [] Rhogam: [] LARC form signed: [] Problem list reviewed and updated with the most current plan of care details and appropriate orders placed. Relevant counseling for the gestational age provided. Continue routine care and follow up unless otherwise noted in visit notes/problem list details OB Flowsheet Initial Weight: Not Recorded Date -?-?-?-?-?-?-?-?-?-?-?-?- EGA Weight BP Urine Prot -?-?-?-?-?-?-?-?-?-?-?-?- Glucose FHR FuHt Pres Dilation -?-?-?-?-?-?-?-?-?-?-?-?- Effaced St Visit Note 03/01/22 -?-?-?-?-?-?-?-?-?-?-?-?- 11w 1d 130 lb 4 oz 118/70 -?-?-?-?-?-?-?-?-?-?-?-?- 168 -?-?-?-?-?-?-?-?-?-?-?-?- SM- CRL cons wit h LMP SM- CRL 4.3cm cons with LMP 03/28/22 -?-?-?-?-?-?-?-?-?-?-?-?- 15w 0d 130 lb 8 oz 100/64 Nega tive -?-?-?-?-?-?-?-?-?-?-?-?- Negative 150 -?-?-?-?-?-?-?-?-?-?-?-?- LC- no vb/crampi ng. AFP ordered, has anatomy scan with mfm ordered w/ CL. 04/25/22 -?-?-?-?-?-?-?-?-?-?-?-?- 19w 0d 135 lb 98/53 Negative -?-?-?-?-?-?-?-?-?-?-?-?- Negative 143 22 -?-?-?-?-?-?-?-?-?-?-?-?- JV- AFP lab stil l pending, will need to check with lab. has anatomy scan tomorrow. 05/21/22 -?-?-?-?-?-?-?-?-?-?-?-?- 22w 5d 138 lb 8 oz 103/60 Nega tive -?-?-?-?-?-?-?-?-?-?-?-?- Negative 156 -?-?-?-?-?-?-?-?-?-?-?-?- MH-No Vb. Nikhil Alanis. Has had episodes of bilateral arm numbness and chest pain. EKG today and cardiology consult. To ED if recurs. 06/07/22 -?-?-?-?-?-?-?-?-?-?-?-?- 25w 1d 141 lb 8 oz 103/68 Nega tive -?-?-?-?-?-?-?-?-?-?-?-?- Negative 145 25 -?-?-?-?-?-?-?-?-?-?-?-?- SM- no vb lof go od fm no regular ctx 06/18/22 -?-?-?-?-?-?-?-?-?-?-?-?- 26w 5d 144 lb 122/71 Negative -?-?-?-?-?-?-?-?-?-?-?-?- Negative 141 26 -?-?-?-?-?-?-?-?-?-?-?-?- Lc- elevated GTT , 3 hour ordered. no vb/lof/ctx. good fm. 07/05/22 -?-?-?-?-?-?-?-?-?-?-?-?- 29w 1d 145 lb 4 oz 113/72 Nega tive -?-?-?-?-?-?-?-?-?-?-?-?- Negative 143 28 0 -?-?-?--?-?-?-?-?-?-?-?-?- JV- pt has an ea r infection and was given drops by urgent care but not getting better. will try augmentin. she wants to be checked for possible dilation due to her history of early delivery. 07/20/22 -?-?-?-?-?-?-?-?-?-?-?-?- 31w 2d 149 lb 6 oz 102/66 Nega tive -?-?-?-?-?-?-?-?-?-?-?-?- Negative 144 30 -?-?-?-?-?-?-?-?-?-?-?-?- JV- still has ea r infection problems and some hearing loss in the left ear. will consult ENT. no lof, vaginal bleeding, or dec fm 08/02/22 -?-?-?-?-?-?-?--?-?-?-?-?- 33w 1d 151 lb 4 oz 113/72 Nega tive -?-?-?-?-?-?-?-?-?-?-?-?- Negative 167 33 Cephalic 0 -?-?-?-?-?-?-?-?-?-?-?-?- JV- cervix poste rior and unable to get a finger in today. was told was dilated on l&D on saturday. still having contractions. delivered last baby at 34 weeks. sending for rescue dose steroid now. 08/17/22 -?-?-?-?-?-?-?-?-?-?-?-?- 35w 2d 153 lb 8 oz 113/74 Nega tive -?-?-?-?-?-?-?-?-?-?-?-?- Negative 125 Cephalic 3 -?-?-?-?-?-?-?-?-?-?-?-?- 50 -1 JV- pt gomez s not appear to be in labor today but did make cervical change since last visit. gbs collected and labor precautions discussed. ROS Constitutional Constitutional: Denies change in weight, fatigue, fever(s), headache(s), poor appetite or weakness Eyes Eyes: Denies blurry vision, change in vision, seeing flashes or spots in vision ENT HEENT: Denies dizziness, headache(s), loss taste/smell or sore throat Cardiovascular Cardiovascular: Denies chest pain, dizziness, dyspnea, irregular heart rhythm, leg edema, palpitations, rapid heart rate or vomiting Respiratory/Chest Respiratory/Chest: Denies chest tightness, cough, dyspnea or breast pain Gastrointestinal Gastrointestinal: Denies abdominal pain, anorexia, constipation, cramping, diarrhea, hemorrhoids, vomiting or weight changes Genitourinary Genitourinary: Denies dysuria, flank pain, genital lesions, genital pain, urinary frequency or urinary urgency Musculoskeletal Musculoskeletal: Denies back pain, difficulty walking, joint pain, limited range of motion, muscle cramps or numbness Integumentary Integumentary: Denies lesions or unusual bruising Neurologic Neurologic: Denies abnormal movements, abnormal speech, dizziness, numbness, seizure-like activity or syncope Psychiatric Psychiatric: Denies anxiety, behavioral changes, change in appetite, change in libido, cognitive impairment, confusion, depression, difficulty concentrating, hallucinations or suicidal thoughts Endocrine Endocrinology: Denies excessive sweating, polydipsia or polyuria Hematologic/Lymphatic Hematologic/Lymphatic: Denies easy bleeding, easy bruising or lymphadenopathy Allergic/Immunologic Allergic/Immunologic: Denies itchy eyes, lip swelling, seasonal rhinorrhea, rhinitis, throat swelling, tongue swelling, eczemia, wheezing or asthma Vital Signs Vital Signs Vital Signs: 08/19/22 16:15 08/19/22 16:15 08/19/22 16:15 Temperature Temperature Source Pulse Rate 85 97 Blood Pressure 112/67 BP Systolic 112 BP Diastolic 67 Pulse Ox 08/19/22 16:15 08/19/22 16:16 08/19/22 16:16 Temperature Temperature Source Temporal Pulse Rate Blood Pressure BP Systolic BP Diastolic Pulse Ox 96 99 08/19/22 16:16 08/19/22 16:16 08/19/22 16:16 Temperature 98.0 F Temperature Source Temporal Pulse Rate Blood Pressure 112/67 BP Systolic 112 BP Diastolic 67 Pulse Ox 08/19/22 16:16 08/19/22 16:16 08/19/22 16:16 Temperature 98.0 F Temperature Source Pulse Rate 97 Blood Pressure BP Systolic BP Diastolic Pulse Ox 99 08/19/22 16:49 08/19/22 16:49 Temperature Temperature Source Pulse Rate 78 Blood Pressure BP Systolic BP Diastolic Pulse Ox 100 Weight Weight: 155 lb Body Mass Index (BMI) 27.4 Physical Exam Const alert, oriented x3, no apparent distress and healthy appearing General Appearance: cooperative; Negative for anxious HEENT normocephalic Face and Sinus: normal facial exam Eyes EOMs intact bilaterally and no scleral icterus General Eye: normal appearance of both eyes Neck full ROM and supple Lymph Lymphatic: no lymphadenopathy noted Chest Chest: abnormal inspection of the chest Resp normal respiratory effort Effort and Inspection: able to speak in complete sentences Cardio regular rate GI soft to palpation and non-tender Inspection: gravid Palpation: soft; Negative for tender external exam normal Amniotic Fluid: ROM+plus Back/Spine no CVA tenderness Extremity normal to inspection, full ROM and no clubbing, cyanosis or edema General Extremity: Negative for calf tenderness or edema Skin Lesions: no lesions Rashes: no rashes Psych mental status grossly normal Labs Labs Labs: Blood Type A POSITIVE Antibody Screen NEGATIVE Hct 31.4 % (37-47) L Hgb 11.5 g/dL (12.0-15.0) L Syphilis Total Ab Non-reactive Rubella IgG Antibody Reactive (Nonreactive) Hep Bs Antigen Non-Reactive (Nonreactive) Chlamydia DNA (TEO) Negative (Negative) Neisseria gonorrhoeae DNA (TEO) Negative (Negative) HIV 1&2 Antibody Non-Reactive (Nonreactive) Glucose 1 Hr 50 gm 155 mg/dL (70-140) H Group B Strep DNA Negative (Negative) Rhogam given: No Miscellaneous Test Assessment & Plan (1) contractions: COMMENT: has completed betamethasone course at 23.6 weeks rescue dose at 33 weeks x 1 PLAN: admit for observation now. IV fluids, type and screen, cbc ordered. gbs is negative light diet only for now. if makes further cervical change will change to liquid diet only. would consider procardia, however bp is low normal and may decrease more with the 10 mg q 6 hrs dose for labor. (2) Acute diffuse otitis externa of left ear: COMMENT: ENT Referral (3) Elevated glucose tolerance test: COMMENT: 3 hour GCT ordered. normal 3 hour GCT (4) History of premature rupture of membranes (PPROM): COMMENT: previous 34 week delivery.nl CL screening-prometrium ordered 200 vaginal (5) Family history of spina bifida: COMMENT: AFP screening negative. folic acid supplementation encouraged. 04/25 AFP screen negative (6) History of molar : COMMENT: check HCG at 6 week PP visit (7) Supervision of high risk , antepartum: COMMENT: PRR , MAXIMUS 09/19/22, PC Oleg, Jose (8) : QUALIFIERS: Weeks of gestation: 35 weeks Qualified Code(s): Z3A.35 - 35 weeks gestation of COMMENT: GBS negative(REPEAT AT 38 WEEKS) declined genetic & nl carrier testing last pregnacy. nl anatomy (9) Asthma: COMMENT: exercise induced
[2022-08-19] MEDS: Lactated Ringers 1,000 ML 50 ML IV (19:50)
[2022-08-19 19:59] LABS: Absolute Lymphocyte Count 2.02 X10^3/uL (0.83-4.51); Absolute Neutrophil Count 7.6 X10^3/uL (2.0-7.7); Basophil# 0.03 X10^3/uL; Basophil% 0.3 % (0-1); Eosinophil# 0.07 X10^3/uL; Eosinophils% 0.7 % (0-5); Hematocrit 31.7 % (37-47); Hemoglobin 10.8 g/dL (12.0-15.0); Lymphocyte # 2.02 X10^3/ul (0.83-4.51); Lymphocyte % 19.2 % (19-41); Mean Corp Hgb Conc 34.1 g/dL (32-36); Mean Corpuscular Hgb 30.7 pg (27.0-32.0); Mean Corpuscular Volume 90.1 fL (81-99); Mean Platelet Vol. 9.2 fl (6.2-12.0); Monocyte# 0.66 X10^3/uL; Monocyte% 6.3 % (0-10); NRBC Flagged by Analyzer 0 % (0-5); Neutrophil # 7.59 X10^3/uL (2.7-7.7); Neutrophil % 72.1 % (47-70); Platelet Count 220 K/mm3 (150-450); RBC Distribution Width CV 13.6 % (11.6-14.6); RBC Distribution Width SD 44.6 fl (35.1-43.9); Red Blood Count 3.52 M/mm3 (4.2-5.4); White Blood Count 10.5 K/mm3 (4.4-11.0)
[2022-08-19 20:33] LABS: Syphilis Antibodies Non-reactive
[2022-08-20 03:14] VITALS: BP 113/64; PULSE 86; O2SAT 98
[2022-08-20 03:15] VITALS: TEMP 36.9
[2022-08-20 07:12] VITALS: PULSE 90; TEMP 36.4; O2SAT 99
[2022-08-20 07:13] VITALS: BP 113/53; PULSE 88; TEMP 36.4
--- NOTE | 2022-08-20 08:06 | OB.TRI.HP_ITS ---
HPI - General General Date of Admission: 08/19/22 HPI Narrative HEMA JIANG, is a 22 F who presents for rule out labor. Patient had consistent contractions throughout the night but they are not feeling any worse or any less. Patient denies any vaginal bleeding but has had increased discharge for the last few weeks. She has a history of previous early delivery. Patient has not made any cervical change overnight. she co pelvic pressure. Maternal Data Information MAXIMUS Calculator Estimated Delivery Date Method Current WG Current Estimate 09/19/22 LMP (Certain) 35w 5d PFSH PFSH Medical History (Updated 08/20/22 @ 08:[address] Elizabeth Lopez MD) Asthma Family history of hearing loss at age younger than 7 years Home Medications NK 08/19/22 [History Last Taken Unknown] Allergy/AdvReac Type Severity Reaction Status Date / Time No Known Allergies Allergy Verified 08/02/22 13:25 Family History Aunt Breast cancer, Onset Age: 40 Maternal- Not genetic Surgical History H/O dilation and curettage History of wisdom tooth extraction Social History adopted: No household members: spouse and children housing: house number of children: 1 current occupational status: employed current occupation: [employer] current occupational exposures/hazards: No pets and animals: No history of recent travel: Yes ([place] February) out of state: Yes out of country: No sexually active: Yes Smoking Status: Never smoker alcohol intake: never substance use type: does not use well-balanced diet: daily or most days caffeine: Yes Type: carbonated beverages Number of servings: 1 and coffee eating out: rarely or never during the past year weight has: remained stable what type of physical activity do you participate in: none kavita/pentecostal: Yarsanism seatbelt use: always do you feel safe at home: Yes additional social history: Carlos younger History 3 Elective abortions Hx Para 1 Spontaneous abortions Hx # Term Pregnancies Ectopic pregnancies Hx # Pregnancies Multiple births # of living children 1 Past Pregnancies Del. Date Name GA/Weeks Outcome Route Bth Weight Gen Labor Lgth Anesthesia Del Locatn Provider FOB 06/18/19 Molar 06/10/20 Dejesus live - 5#0oz Female 16 hours non e [facility] Apryl Garcia Delivery Date: 06/10/20 Last Updated by: Katherin Mcrae pitfidel for no progression Visit Details Expected Delivery Route/Plan Labor Preferences- CB/BF classes: [] labor support person: [] labor intervention preferences: [] pain management options preferred: [] cut cord/dad catch: [] : [] PP control planned: [] discussed possible routes of delivery and associated risks: [] special requests: [] Plans Covid status: [] Flu vaccine: [] Tdap vaccine: [] Rhogam: [] LARC form signed: [] Problem list reviewed and updated with the most current plan of care details and appropriate orders placed. Relevant counseling for the gestational age provided. Continue routine care and follow up unless otherwise noted in visit notes/problem list details OB Flowsheet Initial Weight: Not Recorded Date -?-?-?-?-?-?-?-?-?-?-?-?- EGA Weight BP Urine Prot -?-?-?-?-?-?-?-?-?-?-?-?- Glucose FHR FuHt Pres Dilation -?-?-?-?-?-?-?-?-?-?-?-?- Effaced St Visit Note 03/01/22 -?-?-?-?-?-?-?--?-?-?-?-?- 11w 1d 130 lb 4 oz 118/70 -?-?-?-?-?-?-?-?-?-?-?-?- 168 -?-?-?-?-?-?-?-?-?-?-?-?- SM- CRL cons wit h LMP SM- CRL 4.3cm cons with LMP 03/28/22 -?-?-?-?-?-?-?-?-?-?-?-?- 15w 0d 130 lb 8 oz 100/64 Nega tive -?-?-?-?-?-?-?-?-?-?-?-?- Negative 150 -?-?-?-?-?-?-?-?-?-?-?-?- LC- no vb/crampi ng. AFP ordered, has anatomy scan with mfm ordered w/ CL. 04/25/22 -?-?-?-?-?-?-?-?-?-?-?-?- 19w 0d 135 lb 98/53 Negative -?--?-?-?-?-?-?-?-?-?-?-?- Negative 143 22 -?-?-?-?-?-?-?-?-?-?-?-?- JV- AFP lab stil l pending, will need to check with lab. has anatomy scan tomorrow. 05/21/22 -?-?-?-?-?-?-?-?-?-?-?-?- 22w 5d 138 lb 8 oz 103/60 Nega tive -?-?-?-?-?-?-?-?-?-?-?-?- Negative 156 -?-?-?-?-?-?-?-?-?-?-?-?- MH-No Vb. Nikhil Garay Has had episodes of bilateral arm numbness and chest pain. EKG today and cardiology consult. To ED if recurs. 06/07/22 -?-?-?-?-?-?-?-?-?-?-?-?- 25w 1d 141 lb 8 oz 103/68 Nega tive -?-?-?-?-?-?-?-?-?-?-?-?- Negative 145 25 -?-?-?-?-?-?-?-?-?-?-?-?- SM- no vb lof go od fm no regular ctx 06/18/22 -?-?-?-?-?-?-?-?-?-?-?-?- 26w 5d 144 lb 122/71 Negative -?-?-?-?-?-?-?-?-?-?-?-?- Negative 141 26 -?-?-?-?-?-?-?-?-?-?-?-?- Lc- elevated GTT , 3 hour ordered. no vb/lof/ctx. good fm. 07/05/22 -?-?-?-?-?-?-?-?-?-?-?-?- 29w 1d 145 lb 4 oz 113/72 Nega tive -?-?-?-?-?-?-?-?-?-?-?-?- Negative 143 28 0 -?-?-?-?-?-?-?-?-?-?-?-?- JV- pt has an ea r infection and was given drops by urgent care but not getting better. will try augmentin. she wants to be checked for possible dilation due to her history of early delivery. 07/20/22 -?-?-?-?-?-?-?-?-?-?-?-?- 31w 2d 149 lb 6 oz 102/66 Nega tive -?-?-?-?-?-?-?-?-?-?-?-?- Negative 144 30 -?-?-?-?-?-?-?-?-?-?-?-?- JV- still has ea r infection problems and some hearing loss in the left ear. will consult ENT. no lof, vaginal bleeding, or dec fm 08/02/22 -?-?-?-?-?-?-?-?-?-?-?-?- 33w 1d 151 lb 4 oz 113/72 Nega tive -?-?-?-?-?-?-?-?-?-?-?-?- Negative 167 33 Cephalic 0 -?-?-?-?-?-?-?-?-?-?-?-?- JV- cervix poste rior and unable to get a finger in today. was told was dilated on l&D on saturday. still having contractions. delivered last baby at 34 weeks. sending for rescue dose steroid now. 08/17/22 -?-?-?-?-?-?-?-?-?-?-?-?- 35w 2d 153 lb 8 oz 113/74 Nega tive -?-?-?-?-?-?-?-?-?-?-?-?- Negative 125 Cephalic 3 -?-?-?-?-?-?-?-?-?-?-?-?- 50 -1 JV- pt gomez s not appear to be in labor today but did make cervical change since last visit. gbs collected and labor precautions discussed. 08/19/22 -?-?-?-?-?-?-?-?-?-?-?-?- 35w 5d 155 lb 112/67 112/67 99/55 89/51 93/52 113/64 113/53 -?-?-?-?-?-?-?-?-?-?-?-?- -?-?-?-?-?-?-?-?-?-?-?-?- ROS Constitutional Constitutional: Reports systems reviewed and no addt'l complaints, except as documented and as per HPI ENT HEENT: Reports systems reviewed and no addt'l complaints, except as documented Cardiovascular Cardiovascular: Reports systems reviewed and no addt'l complaints, except as documented Respiratory/Chest Respiratory/Chest: Reports systems reviewed and no addt'l complaints, except as documented Gastrointestinal Gastrointestinal: Reports as per HPI Genitourinary Genitourinary: Reports as per HPI Musculoskeletal Musculoskeletal: Reports systems reviewed and no addt'l complaints, except as documented Integumentary Integumentary: Reports systems reviewed and no addt'l complaints, except as documented Neurologic Neurologic: Reports systems reviewed and no addt'l complaints, except as documented Physical Exam Const alert, oriented x3 and no apparent distress HEENT Head and Scalp: normocephalic and atraumatic Neck full ROM and no lymphadenopathy Chest inspection of chest normal Resp normal respiratory effort GI GI Narrative: gravid, abdomen nontender, AGA Manual OB Exam: dilated, effaced and station NST FHR Rate Baby A Baseline: 140 Variability:: Moderate Accelerations:: 15 x 15 Decelerations:: None NST Reactive:: Yes FHR Category:: Category I Uterine Activity:: regular q 2-4 Assessment & Plan (1) Asthma: COMMENT: exercise induced (2) : QUALIFIERS: Weeks of gestation: 35 weeks Qualified Code(s): Z3A.35 - 35 weeks gestation of COMMENT: GBS negative(REPEAT AT 38 WEEKS) declined genetic & nl carrier testing last pregnacy. nl anatomy (3) Supervision of high risk , antepartum: COMMENT: PRR , MAXIMUS 09/19/22, PC Dejesus, Jose (4) contractions: COMMENT: has completed betamethasone course at 23.6 weeks rescue dose at 33 weeks x 1. cervix 4-5 cm stable 08/20 (5) Acute diffuse otitis externa of left ear: COMMENT: ENT Referral PLAN: Plan labor stable no cervical change dc home fu in office as scheduled Charges/Coding Multi Select Codes Visit Charges Office Visit/Consults: 89829 OV L3 Est Urinary/Genital Urinary/Genital CPT Codes: 24380-88 non-stress test Interp
== END 2022-08-20 08:00 | disposition home or self-care (01) ==
LOC: WPOUT 16:09 → WP 16:09
PROVIDERS: PCP Family Medicine; Visit Provider Obstetrics & Gynecology
DX: O60.03 Preterm labor without delivery, third trimester (principal); O99.891 Other specified diseases and conditions complicating pregnancy; H66.92 Otitis media, unspecified, left ear; O99.810 Abnormal glucose complicating pregnancy; Z3A.35 35 weeks gestation of pregnancy; Z87.59 Personal history of other complications of pregnancy, childbirth and the puerperium
CPT/HCPCS: 96360; 96361 ×11; 36415; 59025; 59050; 84112; 85025; 86780; 86850; 86900; 86901; 99221; J7120; G0378

== ENCOUNTER 2022-08-27 00:32 | Inpatient (IN) | payer BC, SELFPAY ==
[2022-08-26 21:41] VITALS: O2SAT 98
[2022-08-26 21:42] VITALS: BP 114/68; PULSE 88; TEMP 36.6
[2022-08-26 21:51] VITALS: BMI 28.0
[2022-08-27] VITALS (51 sets, daily range): BP systolic 100–124; BP diastolic 47–76; PULSE 63–103; RESP 16; TEMP 36.3–36.9; O2SAT 87–100
--- NOTE | 2022-08-27 00:26 | OB.TRI.HP_ITS ---
HPI - General General Date of Admission: 08/27/22 Date of Service: 08/27/22 HPI Narrative HEMA JIANG, is a 22 F at 36.5 weeks who presents IAL. Maternal Data Information MAXIMUS Calculator Estimated Delivery Date Method Current WG Current Estimate 09/19/22 LMP (Certain) 36w 5d Final MAXIMUS: 09/19/22 Final MAXIMUS Source: US >20 weeks Gestational age: 36.5 weeks PFSH PFSH Medical History (Updated 08/27/22 @ 00:29 by Nalini Santos CNM) Asthma Family history of hearing loss at age younger than 7 years Home Medications ferrous sulfate 325 mg (65 mg iron) tablet (iron) 325 mg PO DAILY anemia 08/26/22 [History Last Taken 08/25/22] Allergy/AdvReac Type Severity Reaction Status Date / Time No Known Allergies Allergy Verified 08/26/22 21:52 Family History Aunt Breast cancer, Onset Age: 40 Maternal- Not genetic Surgical History H/O dilation and curettage History of wisdom tooth extraction Social History adopted: No household members: spouse and children housing: house number of children: 1 current occupational status: employed 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 current occupational exposures/hazards: No pets and animals: No history of recent travel: Yes ([place] February) out of state: Yes out of country: No sexually active: Yes Smoking Status: Never smoker alcohol intake: never substance use type: does not use well-balanced diet: daily or most days caffeine: Yes Type: carbonated beverages Number of servings: 1 and coffee eating out: rarely or never during the past year weight has: remained stable what type of physical activity do you participate in: none kavita/latter-day: Denominational seatbelt use: always do you feel safe at home: Yes additional social history: Carlos younger History 3 Elective abortions Hx Para 1 Spontaneous abortions Hx # Term Pregnancies Ectopic pregnancies Hx # Pregnancies Multiple births # of living children 1 Past Pregnancies Del. Date Name GA/Weeks Outcome Route Bth Weight Gen Labor Lgth Anesthesia Del Locatn Provider FOB 06/18/19 Molar 04/09/21 Dejesus live - 5#0oz Female 16 hours non e [facility] Apryl Garcia Delivery Date: 06/10/20 Last Updated by: Katherin Mcrae pitfidel for no progression Visit Details Expected Delivery Route/Plan Labor Preferences- CB/BF classes: [] labor support person: [] labor intervention preferences: [] pain management options preferred: [] cut cord/dad catch: [] : [] PP control planned: [] discussed possible routes of delivery and associated risks: [] special requests: [] Plans Covid status: [] Flu vaccine: [] Tdap vaccine: [] Rhogam: [] LARC form signed: [] Problem list reviewed and updated with the most current plan of care details and appropriate orders placed. Relevant counseling for the gestational age provided. Continue routine care and follow up unless otherwise noted in visit notes/problem list details OB Flowsheet Initial Weight: Not Recorded Date -?-?-?-?-?-?-?-?-?-?-?-?- EGA Weight BP Urine Prot -?-?-?-?-?-?-?-?-?-?-?-?- Glucose FHR FuHt Pres Dilation -?-?-?-?-?-?-?-?-?-?-?-?- Effaced St Visit Note 03/01/22 -?-?-?-?-?-?-?-?-?-?-?-?- 11w 1d 130 lb 4 oz 118/70 -?-?-?-?-?-?-?-?-?-?-?-?- 168 -?-?-?-?-?-?-?-?-?-?-?-?- SM- CRL cons wit h LMP SM- CRL 4.3cm cons with LMP 03/28/22 -?-?-?-?-?-?-?-?-?-?-?-?- 15w 0d 130 lb 8 oz 100/64 Nega tive -?-?-?-?-?-?-?-?-?-?-?-?- Negative 150 -?-?-?-?-?-?-?-?-?-?-?-?- LC- no vb/crampi ng. AFP ordered, has anatomy scan with mfm ordered w/ CL. 04/25/22 -?-?-?-?-?-?-?-?-?-?-?-?- 19w 0d 135 lb 98/53 Negative -?-?-?-?-?-?-?-?-?-?-?-?- Negative 143 22 -?-?-?-?-?-?-?-?-?-?-?-?- JV- AFP lab stil l pending, will need to check with lab. has anatomy scan tomorrow. 05/21/22 -?-?-?-?-?-?-?-?-?-?-?-?- 22w 5d 138 lb 8 oz 103/60 Nega tive -?-?-?-?-?-?-?-?-?-?-?-?- Negative 156 -?-?-?-?-?-?-?-?-?-?-?-?- MH-No Vb. Nikhil Garay Has had episodes of bilateral arm numbness and chest pain. EKG today and cardiology consult. To ED if recurs. 06/07/22 -?-?-?-?-?-?-?-?-?-?-?-?- 25w 1d 141 lb 8 oz 103/68 Nega tive -?-?-?-?-?-?-?-?-?-?-?-?- Negative 145 25 -?-?-?-?-?-?-?-?-?-?-?-?- SM- no vb lof go od fm no regular ctx 06/18/22 -?-?-?-?-?-?-?-?-?-?-?-?- 26w 5d 144 lb 122/71 Negative -?-?-?-?-?-?-?-?-?-?-?-?- Negative 141 26 -?-?-?-?-?-?-?-?-?-?-?-?- Lc- elevated GTT , 3 hour ordered. no vb/lof/ctx. good fm. 07/05/22 -?-?-?-?-?-?-?-?-?-?-?-?- 29w 1d 145 lb 4 oz 113/72 Nega tive -?-?-?-?-?-?-?-?-?-?-?-?- Negative 143 28 0 -?-?-?-?-?-?-?-?-?-?-?-?- JV- pt has an ea r infection and was given drops by urgent care but not getting better. will try augmentin. she wants to be checked for possible dilation due to her history of early delivery. 07/20/22 -?-?-?-?-?-?-?-?-?-?-?-?- 31w 2d 149 lb 6 oz 102/66 Nega tive -?-?-?-?-?-?-?-?-?-?-?-?- Negative 144 30 -?-?-?-?-?-?-?-?-?-?-?-?- JV- still has ea r infection problems and some hearing loss in the left ear. will consult ENT. no lof, vaginal bleeding, or dec fm 08/02/22 -?-?-?-?-?-?-?-?-?-?-?-?- 33w 1d 151 lb 4 oz 113/72 Nega tive -?-?-?-?-?-?-?-?-?-?-?-?- Negative 167 33 Cephalic 0 -?-?-?-?-?-?-?-?-?-?-?-?- JV- cervix poste rior and unable to get a finger in today. was told was dilated on l&D on saturday. still having contractions. delivered last baby at 34 weeks. sending for rescue dose steroid now. 08/17/22 -?-?-?-?-?-?-?-?-?-?-?-?- 35w 2d 153 lb 8 oz 113/74 Nega tive -?-?-?-?-?-?-?-?-?-?-?-?- Negative 125 Cephalic 3 -?-?-?-?-?-?-?-?-?-?-?-?- 50 -1 JV- pt gomez s not appear to be in labor today but did make cervical change since last visit. gbs collected and labor precautions discussed. ROS Constitutional Constitutional: Denies change in weight, fatigue, fever(s), headache(s), poor appetite or weakness Eyes Eyes: Denies blurry vision, change in vision, floaters, seeing flashes or spots in vision ENT HEENT: Denies dizziness, headache(s), loss taste/smell or sore throat Cardiovascular Cardiovascular: Denies chest pain, dizziness, dyspnea, irregular heart rhythm, lightheadedness, palpitations or rapid heart rate Respiratory/Chest Respiratory/Chest: Denies change in mental status, chest tightness, cough, dyspnea or breast pain Gastrointestinal Gastrointestinal: Denies anorexia, chewing difficulty, constipation, diarrhea or weight changes Genitourinary Genitourinary: Denies difficulty urinating, dysuria, flank pain, genital pain, urinary frequency or urinary urgency Musculoskeletal Musculoskeletal: Denies back pain, difficulty walking, extremity pain, joint pain, muscle cramps or muscle weakness Integumentary Integumentary: Denies lesions or unusual bruising Neurologic Neurologic: Denies abnormal movements, abnormal speech, dizziness, numbness, seizure-like activity, syncope or weakness Psychiatric Psychiatric: Denies behavioral changes, change in appetite, confusion, depression, homicidal ideation, suicidal ideation or suicidal thoughts Endocrine Endocrinology: Denies excessive sweating, polydipsia or polyuria Hematologic/Lymphatic Hematologic/Lymphatic: Denies anemia Allergic/Immunologic Allergic/Immunologic: Denies itchy eyes, lip swelling, throat swelling, tongue swelling or wheezing Physical Exam Const alert, oriented x3 and no apparent distress General Appearance: cooperative Orientation / Consciousness: awake HEENT normocephalic Neck full ROM Lymph Lymphatic: no lymphadenopathy noted Chest inspection of chest normal Resp normal respiratory effort and normal air movement Effort and Inspection: able to speak in complete sentences and symmetric chest movement GI soft to palpation and non-tender Inspection: gravid Palpation: soft; Negative for tender external exam normal Manual OB Exam: estimated gestational size appropriate, presentation cephalic, dilated 6-7, effaced 90 and station +1 Back/Spine normal to inspection Extremity normal to inspection and full ROM Skin no rashes or lesions noted Neuro moves all extremities Psych mental status grossly normal Appearance: grossly normal Speech: normal speech NST FHR Rate Baby A Baseline: 130 Variability:: Moderate Accelerations:: 15 x 15 Decelerations:: None NST Reactive:: Yes FHR Category:: Category I Assessment & Plan (1) Active labor: PLAN: Patient presents IAL, plan expectant management for , pitocin/AROM PRN if needed. Pain management: plans no epidural. GBS positive plan IV PCN. Management of any complications: history of 34 week delivery I have reviewed the [facility] and made any clinically relevant updates. (2) GBS (group B Streptococcus carrier), +RV culture, currently : COMMENT: PCN in Labor (3) Asthma: COMMENT: exercise induced (4) : QUALIFIERS: Weeks of gestation: 35 weeks Qualified Code(s): Z3A.35 - 35 weeks gestation of COMMENT: GBS negative(REPEAT AT 38 WEEKS) declined genetic & nl carrier testing last pregnacy. nl anatomy (5) Supervision of high risk , antepartum: COMMENT: PRR , MAXIMUS 09/19/22, PC Dejesus, Jose (6) History of molar : COMMENT: check HCG at 6 week PP visit (7) Family history of spina bifida: COMMENT: AFP screening negative. folic acid supplementation encouraged. 04/25 AFP screen negative (8) History of premature rupture of membranes (PPROM): COMMENT: previous 34 week delivery.nl CL screening-prometrium ordered 200 vaginal (9) Elevated glucose tolerance test: COMMENT: 3 hour GCT ordered. normal 3 hour GCT (10) Acute diffuse otitis externa of left ear: COMMENT: ENT Referral (11) contractions: COMMENT: has completed betamethasone course at 23.6 weeks rescue dose at 33 weeks x 1. cervix 4-5 cm stable 08/20 Charges/Coding Multi Select Codes Urinary/Genital Urinary/Genital CPT Codes: No Charge
[2022-08-27] MEDS: Lactated Ringers 1,000 ML 50 ML IV (00:35)
[2022-08-27 01:02] LABS: Absolute Lymphocyte Count 2.14 X10^3/uL (0.83-4.51); Absolute Neutrophil Count 5.2 X10^3/uL (2.0-7.7); Basophil# 0.03 X10^3/uL; Basophil% 0.4 % (0-1); Eosinophil# 0.14 X10^3/uL; Eosinophils% 1.7 % (0-5); Hematocrit 30.5 % (37-47); Hemoglobin 10.2 g/dL (12.0-15.0); Lymphocyte # 2.14 X10^3/ul (0.83-4.51); Lymphocyte % 25.3 % (19-41); Mean Corp Hgb Conc 33.4 g/dL (32-36); Mean Corpuscular Hgb 30.2 pg (27.0-32.0); Mean Corpuscular Volume 90.2 fL (81-99); Mean Platelet Vol. 9.6 fl (6.2-12.0); Monocyte# 0.85 X10^3/uL; NRBC Flagged by Analyzer 0 % (0-5); Neutrophil # 5.19 X10^3/uL (2.7-7.7); Neutrophil % 61.2 % (47-70); Platelet Count 227 K/mm3 (150-450); RBC Distribution Width CV 13.6 % (11.6-14.6); RBC Distribution Width SD 44.8 fl (35.1-43.9); Red Blood Count 3.38 M/mm3 (4.2-5.4); White Blood Count 8.5 K/mm3 (4.4-11.0)
[2022-08-27 02:00] LABS: Syphilis Antibodies Non-reactive
[2022-08-27] MEDS: Penicillin G 3,000,000 Units 50 ML 100 UNITS IV (04:37)
[2022-08-27] MEDS: Oxytocin 10 UNITS/ML Vial IM (05:38)
[2022-08-27] MEDS: Lidocaine 1% (20 ml mdv) 20 ML Vial INFILT (05:41)
--- NOTE | 2022-08-27 06:32 | NURSING ---
IV fell out during pushing, CNM order to leave out.
--- NOTE | 2022-08-27 06:47 | OP.PCM_ITS ---
Assessment & Plan (1) Vaginal delivery: COMMENT: KW 36.5 weeks IAL, breast -Boy Anup Maternal Data Information MAXIMUS Calculator Estimated Delivery Date Method Current WG Current Estimate 09/19/22 LMP (Certain) 36w 5d Final MAXIMUS: 09/19/22 Final MAXIMUS Source: US >20 weeks Gestational age: 36.5 weeks Vaginal Delivery Maternal Presentation Maternal Presentation: Active Labor Maternal Presentation: Patient began pushing and delivered the head in the NICANOR presentation. The head was delivered atraumatically no nuchal cord was identified. The anterior and posterior shoulders delivered without complication followed by the rest of the and the was placed on the maternal abdomen. Delayed cord clamping was employed for approximately 2 minutes. Cord was clamped and cut and gentle traction was applied to the cord and the placenta delivered spontaneously immediately following it was noted to be intact with three-vessel cord. The perineum and vagina were inspected and noted to have 1 degree laceration which was repaired in the usual fashion using 3-0 Rapide. EBL was 200. Patient and tolerated delivery well. Apgars 7/8. 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 #1: Nalini Santos Type of Anesthesia: Local with 1% Lidocaine Estimated Blood Loss: 200 Time of Delivery: 05:43 Findings Presentation: NICANOR Amniotic Membrane Rupture Type: Artificial Time of Membrane Rupture: 0 Amniotic Fluid Description: Clear Placental Delivery Description: Spontaneous Placenta Disposition: [facility] Cord Vessel Description: 3 Vessels Cord Entanglement: None Infant A Gender: Male (1 minute): 7 (5 minute): 8 Delayed Cord Clamping: Yes Post Vaginal Delivery Medications Given After Delivery: IM Pitocin Episiotomy Description: None Laceration: 1st degree Complication Complications: None Multi Select Codes Urinary/Genital Urinary/Genital CPT Codes: 19296 Vaginal Delivery [facility]
--- NOTE | 2022-08-27 06:55 | DCINST_ITS ---
Discharge Instructions Diet Discharge Diet: No restrictions Activity Discharge Activity: Return to Normal Activity May resume sexual activity in: 6-8 weeks Dressing / Incision Call your doctor if you observe: Fever of 101 or Higher, Coldness, Increased Pain, Numbness or Tingling, Change in Color, Inability to urinate, Inability to have a bowel movement, Using more than 1 pad per hour, Shortness of breath, Dizziness, Fainting spells, Swelling in the ankles, Chest pain, Increased palpitations (irregular heartbeat), Calf discomfort and Uncontrolled pain Follow Up Care Please Follow Up With: Nalini Santos CNM When: Please call the office to schedule your follow up appointment in 6 weeks. If you had high blood pressure please call to schedule an appointment in 2 weeks. Test Results: Test results from this visit will be discussed in further detail at your follow- up appointment, if applicable. Discharge Plan Admission Admit Date/Time: 08/27/22 00:32 Attending Provider: Nalini Santos Primary Care Provider: Joshua Farooq Discharge Orders/Prescriptions Prescriptions: No Action ferrous sulfate [iron] 325 mg (65 mg iron) Tablet 325 mg PO DAILY Referrals / Follow Up: Joshua Farooq MD [Primary Care Provider] - Disposition Disposition (needs filled in before D/C Order can be placed): Home, Self Care
[2022-08-27] MEDS: Ibuprofen 600 MG Tablet PO ×3 (07:32→20:47)
[2022-08-27] MEDS: Acetaminophen 500 MG Tablet 1000 MG PO (16:00)
[2022-08-28 00:27] VITALS: BP 105/56; PULSE 63; RESP 16; TEMP 36.9
[2022-08-28] MEDS: Acetaminophen 500 MG Tablet 1000 MG PO ×2 (00:34→08:13)
[2022-08-28 03:34] VITALS: BP 115/72; PULSE 77; RESP 16; TEMP 36.6
[2022-08-28] MEDS: Ibuprofen 600 MG Tablet PO ×2 (03:54→09:54)
[2022-08-28 08:18] VITALS: BP 93/58; PULSE 60; RESP 16; TEMP 36.6
--- NOTE | 2022-08-28 10:04 | PCM.PN.OB ---
Subjective Subjective Patient doing well without complaints. Tolerating PO. Ambulating and voiding without difficulty. Feeding well. Denies chest pain, shortness of breath, calf pain/swelling, fevers, chills, lightheadedness. Objective Data Objective Data Vital Signs: Vital Signs Temp Pulse Resp BP Pulse Ox O2 Del Method 97.8 F 60 16 93/58 L 87 Room Air 08/28/22 08:18 08/28/22 08:18 08/28/22 08:18 08/28/22 08:18 08/27/22 08:16 08/28/22 08:18 Oxygen Delivery Method Room Air Weight: 158 lb 9.6 oz Body Mass Index (BMI) 28.0 Intake & Output: Intake and Output for Last 24 Hours 08/26/22 08/27/22 08/28/22 23:59 23:59 23:59 Intake Total 995 / 995 Output Total 1400 / 1400 Balance -405 / -405 Lab / Micro Data Attestation: I reviewed the patient's lab results. Result Diagrams: 08/27/22 00:35 ROS Constitutional Constitutional: Reports systems reviewed and no addt'l complaints, except as documented; Denies anorexia or headache(s) Cardiovascular Cardiovascular: Reports systems reviewed and no addt'l complaints, except as documented; Denies dizziness, dyspnea, nausea or tachypnea Respiratory/Chest Respiratory/Chest: Reports systems reviewed and no addt'l complaints, except as documented; Denies cough, dyspnea, shortness of breath at rest or tachypnea Gastrointestinal Gastrointestinal: Reports systems reviewed and no addt'l complaints, except as documented; Denies abdominal pain, constipation or nausea Genitourinary Genitourinary: Reports systems reviewed and no addt'l complaints, except as documented; Denies burning urination, difficulty urinating, dysuria, urinary frequency or urinary incontinence Musculoskeletal Musculoskeletal: Reports systems reviewed and no addt'l complaints, except as documented Integumentary Integumentary: Reports systems reviewed and no addt'l complaints, except as documented Neurologic Neurologic: Reports systems reviewed and no addt'l complaints, except as documented; Denies abnormal speech, dizziness or headache(s) Psychiatric Psychiatric: Reports systems reviewed and no addt'l complaints, except as documented Endocrine Endocrinology: Reports systems reviewed and no addt'l complaints, except as documented Hematologic/Lymphatic Hematologic/Lymphatic: Reports systems reviewed and no addt'l complaints, except as documented Physical Exam Const alert, oriented x3 and no apparent distress Neck full ROM Resp normal respiratory effort, normal air movement and no retractions Effort and Inspection: able to speak in complete sentences and symmetric chest movement GI soft to palpation Bladder / Kidney Exam: bladder normal to palpation Uterus Palpation: uterus fundus Extremity normal to inspection and full ROM Psych mental status grossly normal, thought process normal and cooperative Assessment & Plan (1) Active labor: PLAN: s/p PPD # 1 1. routine post delivery care 2. breast feeding- support given 3. rh positive 4. rubella immune 5. Discharge home (2) Family history of spina bifida: COMMENT: AFP screening negative. folic acid supplementation encouraged. 04/25 AFP screen negative (3) Acute diffuse otitis externa of left ear: COMMENT: ENT Referral Charges/Coding Multi Select Codes Urinary/Genital Urinary/Genital CPT Codes: No Charge
--- NOTE | 2022-08-28 10:05 | DCINST_ITS ---
Discharge Instructions Diet Discharge Diet: No restrictions Activity May resume sexual activity in: 6-8 weeks Dressing / Incision Call your doctor if you observe: Fever of 101 or Higher, Coldness, Increased Pain, Numbness or Tingling, Change in Color, Inability to urinate, Inability to have a bowel movement, Using more than 1 pad per hour, Shortness of breath, Dizziness, Fainting spells, Swelling in the ankles, Chest pain, Increased palpitations (irregular heartbeat), Calf discomfort and Uncontrolled pain Follow Up Care Please Follow Up With: Nalini Santos CNM Test Results: Test results from this visit will be discussed in further detail at your follow- up appointment, if applicable. Discharge Plan Admission Admit Date/Time: 08/27/22 00:32 Attending Provider: Nalini Santos Primary Care Provider: Joshua Farooq Discharge Orders/Prescriptions Prescriptions: No Action ferrous sulfate [iron] 325 mg (65 mg iron) Tablet 325 mg PO DAILY Referrals / Follow Up: Joshua Farooq MD [Primary Care Provider] - Disposition Disposition (needs filled in before D/C Order can be placed): Home, Self Care
--- NOTE | 2022-08-30 08:05 | PCM.HP.OB ---
HPI - General General Date of Admission: 08/27/22 Date of Service: 08/27/22 HPI Narrative HEMA JIANG, is a 22 F who presents IAL Maternal Data Information Final MAXIMUS: 09/19/22 Final MAXIMUS Source: US >20 weeks Gestational age: 36.5 weeks [facility] Medical History (Updated 08/30/22 @ 08:10 by Nalini Santos CNM) Asthma Family history of hearing loss at age younger than 7 years GBS (group B Streptococcus carrier), +RV culture, currently History of molar History of premature rupture of membranes (PPROM) Vaginal delivery Home Medications ferrous sulfate 325 mg (65 mg iron) tablet (iron) 325 mg PO DAILY anemia 08/26/22 [History Last Taken 08/25/22] Allergy/AdvReac Type Severity Reaction Status Date / Time No Known Allergies Allergy Verified 08/26/22 21:52 Family History Aunt Breast cancer, Onset Age: 40 Maternal- Not genetic Surgical History H/O dilation and curettage History of wisdom tooth extraction Social History adopted: No household members: spouse and children housing: house number of children: 1 current occupational status: employed 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 current occupational exposures/hazards: No pets and animals: No history of recent travel: Yes ([place] February) out of state: Yes out of country: No sexually active: Yes Smoking Status: Never smoker alcohol intake: never substance use type: does not use well-balanced diet: daily or most days caffeine: Yes Type: carbonated beverages Number of servings: 1 and coffee eating out: rarely or never during the past year weight has: remained stable what type of physical activity do you participate in: none kavita/holiness: [employer] seatbelt use: always do you feel safe at home: Yes additional social history: Carlos younger History 3 Elective abortions Hx Para 2 Spontaneous abortions Hx # Term Pregnancies Ectopic pregnancies Hx # Pregnancies Multiple births # of living children 2 Past Pregnancies Del. Date Name GA/Weeks Outcome Route Bth Weight Infant Gen Labor Lgth Anesthesia Del Locatn Provider FOB 06/18/19 Molar 06/10/20 Dejesus live - 5#0oz Female 16 hours none [facility] Apryl Dumontin 08/27/22 Hebert 36 live - full term Male [facility] Margaret Santos Delivery Date: 06/10/20 Last Updated by: Katherin Mcrae pitocin for no progression Delivery Date: 08/27/22 Last Updated by: Sole Echevarria IOL 36.5 wks NST FHR Rate Baby A Baseline: 130 Variability:: Moderate Accelerations:: 15 x 15 Decelerations:: None NST Reactive:: Yes FHR Category:: Category I ROS Constitutional Constitutional: Denies change in weight, fatigue, fever(s), headache(s), poor appetite or weakness Eyes Eyes: Denies blurry vision, change in vision, floaters, seeing flashes or spots in vision ENT HEENT: Denies dizziness, headache(s), loss taste/smell or sore throat Cardiovascular Cardiovascular: Denies chest pain, dizziness, dyspnea, irregular heart rhythm, lightheadedness, palpitations or rapid heart rate Respiratory/Chest Respiratory/Chest: Denies change in mental status, chest tightness, cough, dyspnea or breast pain Gastrointestinal Gastrointestinal: Denies anorexia, chewing difficulty, constipation, diarrhea or weight changes Genitourinary Genitourinary: Denies difficulty urinating, dysuria, flank pain, genital pain, urinary frequency or urinary urgency Musculoskeletal Musculoskeletal: Denies back pain, difficulty walking, extremity pain, joint pain, muscle cramps or muscle weakness Integumentary Integumentary: Denies lesions or unusual bruising Neurologic Neurologic: Denies abnormal movements, abnormal speech, dizziness, numbness, seizure-like activity, syncope or weakness Psychiatric Psychiatric: Denies behavioral changes, change in appetite, confusion, depression, homicidal ideation, suicidal ideation or suicidal thoughts Endocrine Endocrinology: Denies excessive sweating, polydipsia or polyuria Hematologic/Lymphatic Hematologic/Lymphatic: Denies anemia Allergic/Immunologic Allergic/Immunologic: Denies itchy eyes, lip swelling, throat swelling, tongue swelling or wheezing Vital Signs Vital Signs Vital Signs: Weight Weight: 158 lb 9.6 oz Body Mass Index (BMI) 28.0 Physical Exam Const alert, oriented x3 and no apparent distress General Appearance: cooperative Orientation / Consciousness: awake HEENT normocephalic Neck full ROM Lymph Lymphatic: no lymphadenopathy noted Chest inspection of chest normal Resp normal respiratory effort and normal air movement Effort and Inspection: able to speak in complete sentences and symmetric chest movement GI soft to palpation and non-tender Inspection: gravid Palpation: soft; Negative for tender external exam normal Back/Spine normal to inspection Extremity normal to inspection and full ROM Skin no rashes or lesions noted Psych mental status grossly normal Appearance: grossly normal Speech: normal speech Labs Labs Labs: Blood Type A POSITIVE Antibody Screen NEGATIVE Hct 30.5 % (37-47) L Hgb 10.2 g/dL (12.0-15.0) L Syphilis Total Ab Non-reactive Rubella IgG Antibody Reactive (Nonreactive) Hep Bs Antigen Non-Reactive (Nonreactive) Chlamydia DNA (TEO) Negative (Negative) Neisseria gonorrhoeae DNA (TEO) Negative (Negative) HIV 1&2 Antibody Non-Reactive (Nonreactive) Glucose 1 Hr 50 gm 155 mg/dL (70-140) H Group B Strep DNA Negative (Negative) Rhogam given: No Miscellaneous Test Assessment & Plan (1) : QUALIFIERS: Weeks of gestation: 35 weeks Qualified Code(s): Z3A.35 - 35 weeks gestation of COMMENT: GBS negative(REPEAT AT 38 WEEKS) declined genetic & nl carrier testing last pregnacy. nl anatomy (2) contractions: COMMENT: has completed betamethasone course at 23.6 weeks rescue dose at 33 weeks x 1. cervix 4-5 cm stable 08/20 (3) Supervision of high risk , antepartum: COMMENT: PRR , MAXIMUS 09/19/22, PC Dejesus, Jose (4) Active labor: QUALIFIERS: Fetus number: single or unspecified fetus Qualified Code(s): O60.10X0 - labor with delivery, unspecified trimester, not applicable or unspecified PLAN: Patient presents IAL, plan expectant management for , pitocin/AROM PRN if needed. Pain management: plans no epidural. GBS positive plan IV PCN. Management of any complications: none I have reviewed the [facility] and made any clinically relevant updates. (5) Elevated glucose tolerance test: COMMENT: 3 hour GCT ordered. normal 3 hour GCT (6) GBS (group B Streptococcus carrier), +RV culture, currently : COMMENT: PCN in Labor (7) History of molar : COMMENT: check HCG at 6 week PP visit (8) History of premature rupture of membranes (PPROM): COMMENT: previous 34 week delivery.nl CL screening-prometrium ordered 200 vaginal Charges/Coding Multi Select Codes Urinary/Genital Urinary/Genital CPT Codes: No Charge
== END 2022-08-28 14:00 | disposition home or self-care (01) | DRG 807 ==
LOC: WPOUT 00:32 → WP 00:32
PROVIDERS: Admitting Provider Advanced Practice Midwife; PCP Family Medicine; Visit Provider Advanced Practice Midwife
DX: O60.14X0 Preterm labor third trimester with preterm delivery third trimester, not applicable or unspecified (principal); Z37.0 Single live birth; H60.502 Unspecified acute noninfective otitis externa, left ear; O99.892 Other specified diseases and conditions complicating childbirth; O70.0 First degree perineal laceration during delivery; O99.824 Streptococcus B carrier state complicating childbirth; Z3A.36 36 weeks gestation of pregnancy; Z87.59 Personal history of other complications of pregnancy, childbirth and the puerperium; Z82.79 Family history of other congenital malformations, deformations and chromosomal abnormalities
CPT/HCPCS: 59025; 59050; 85025; 86780; 86850; 86900; 86901; 99221; J7120; G0378

== ENCOUNTER → 2022-10-24 | Outpatient (CLI) | payer BC, SELFPAY ==
--- NOTE | 2022-10-24 12:53 | US_ITS ---
INDICATION: pelvic pain EXAMINATION: Ultrasound US Pelvis Non OB Complete With Transvaginal Imaging TECHNIQUE: Transabdominal and transvaginal pelvic ultrasound was performed. Grayscale, spectral waveform, and color flow Doppler evaluation of the adnexa. COMPARISON: None. FINDINGS: UTERUS: Anteverted. The uterus measures 7.6 x 5.6 x 3.5 cm. There is no uterine mass. The endometrial stripe measures 3 mm in AP diameter which is within normal limits. RIGHT OVARY: Measures 2.9 x 2.7 x 2 cm. Non-enlarged, normal echogenicity. There is normal arterial inflow and venous outflow present in the right ovary. LEFT OVARY: Measures 3.2 x 2.6 x 1.2 cm. Non-enlarged, normal echogenicity. There is normal arterial inflow and venous outflow present in the left ovary. FREE FLUID: Trace. US/Pelvic w/ Transvaginal IMPRESSION: Normal pelvic ultrasound. Electronically Signed: Ganesh Danielle MD at 23:48 EDT ,
== END | disposition home or self-care (01) ==
LOC: US 12:49
PROVIDERS: PCP Family Medicine; Referring Provider Advanced Practice Midwife; Visit Provider Advanced Practice Midwife
DX: R10.2 Pelvic and perineal pain (principal)
CPT/HCPCS: 76830; 76856; 93976

== ENCOUNTER → 2023-02-08 | Outpatient (CLI) | payer BC, SELFPAY ==
--- NOTE | 2023-02-08 10:46 | ECHOD_ITS ---
Reason For Study: CHEST PAIN Procedure This was a 2D Doppler, Color Flow transthoracic echocardiogram. Exam performed in department. Left Ventricle Normal LV size. Left ventricular systolic function is normal. The estimated ejection fraction is 60 %. No regional wall motion abnormalities noted. Right Ventricle Normal RV size. Normal systolic function. Atria Normal left atrium. Normal right atrium. Mitral Valve Normal mitral valve. Tricuspid Valve Normal tricuspid valve. Aortic Valve Trisinus/trileaflet aortic valve. Pulmonic Valve Normal pulmonic valve. Great Vessels Normal aortic root. The pulmonary artery is normal size. Normal inferior vena cava. Pericardium/Pleural No pericardial effusion. MMode/2D Measurements & Calculations LVIDd: 4.6 cm IVSd: 0.72 cm Ao root diam: 2.4 cm LVIDs: 3.2 cm LVPWd: 0.68 cm RVDd: 2.2 cm FS: 30.1 % LAV(MOD-bp): 32.1 ml LVAd ap4: 26.1 cm2 LVAd ap2: 31.6 cm2 LAV(MOD-bp) Indexed: 20.3 ml/m2 LVLd ap4: 7.8 cm LVLd ap2: 7.5 cm LAV(MOD-sp2): 35.7 ml EDV(MOD-sp4): 74.3 ml EDV(MOD-sp2): 112.9 ml LAV(MOD-sp4): 28.1 ml EDV(sp4-el): 74.8 ml EDV(sp2-el): 113.2 ml LVAs ap4: 15.6 cm2 LVAs ap2: 18.3 cm2 LVLs ap4: 6.8 cm LVLs ap2: 6.1 cm ESV(MOD-sp4): 32.0 ml ESV(MOD-sp2): 46.7 ml ESV(sp4-el): 30.5 ml ESV(sp2-el): 46.1 ml EF(MOD-sp4): 57.0 % EF(MOD-sp2): 58.6 % EF(sp4-el): 59.2 % SV(MOD-sp4): 42.3 ml SV(MOD-sp2): 66.2 ml SV(sp4-el): 44.3 ml LA dimension(2D): 3.0 cm LA A4 area: 13.1 cm2 RA A4 area: 8.0 cm2 TAPSE: 2.1 cm Time Measurements MV dec time: 0.16 sec Doppler Measurements & Calculations MV E max rehan: 78.5 cm/sec Lat Peak E' Rehan: 15.1 cm/sec Med Peak E' Rehan: 10.5 cm/sec MV A max rehan: 73.9 cm/sec E/E' lat: 5.2 E/E' med: 7.5 MV E/A: 1.1 MV V2 max: 95.5 cm/sec MV dec slope: 501.6 cm/sec2 Ao V2 max: 114.1 cm/sec MV max P.6 mmHg Ao max P.2 mmHg MV V2 mean: 66.7 cm/sec Ao V2 mean: 80.0 cm/sec MV mean P.9 mmHg Ao mean P.0 mmHg MV V2 VTI: 30.2 cm Ao V2 VTI: 25.0 cm AV (velocity ratio): 0.98 LV V1 max: 111.1 cm/sec LV V1 max P.9 mmHg LV V1 mean P.5 mmHg LV V1 mean: 72.9 cm/sec LV V1 VTI: 24.5 cm ECHO/Echo Complete Interpretation Summary Normal LV size. Left ventricular systolic function is normal. The estimated ejection fraction is 60 %. Structurally normal valves. Ordering Physician: Daniel Bella Referring Physician: Daniel Bella Performed By: Laisha Hwang RCS
== END | disposition home or self-care (01) ==
LOC: CVS 10:46
PROVIDERS: PCP Family Medicine; Referring Provider Internal Medicine Cardiovascular Disease; Visit Provider Internal Medicine Cardiovascular Disease
DX: R07.9 Chest pain, unspecified (principal)
CPT/HCPCS: 93306

== ENCOUNTER → 2023-10-25 | Outpatient (CLI) | payer BC, SELFPAY ==
[2023-10-25 09:39] LABS: Absolute Lymphocyte Count 2.08 X10^3/uL (0.83-4.51); Basophil# 0.02 X10^3/uL; Basophil% 0.3 % (0-1); Eosinophil# 0.09 X10^3/uL; Eosinophils% 1.3 % (0-5); Hematocrit 36.4 % (37-47); Lymphocyte # 2.08 X10^3/ul (0.83-4.51); Mean Corp Hgb Conc 35.7 g/dL (32-36); Mean Corpuscular Volume 83.9 fL (81-99); Mean Platelet Vol. 8.6 fl (6.2-12.0); Monocyte% 7.4 % (0-10); NRBC Flagged by Analyzer 0 % (0-5); Neutrophil # 3.99 X10^3/uL (2.7-7.7); Neutrophil % 59.4 % (47-70); Platelet Count 258 K/mm3 (150-450); RBC Distribution Width CV 12.7 % (11.6-14.6); RBC Distribution Width SD 39.2 fl (35.1-43.9); Red Blood Count 4.34 M/mm3 (4.2-5.4); White Blood Count 6.7 K/mm3 (4.4-11.0)
[2023-10-25 10:13] LABS: Vitamin D,25 Hydroxy 27.8 ng/mL
[2023-10-25 10:18] LABS: ALB/GLOB Ratio 0.9 RATIO (0.9-2.4); AST(SGOT) 21 U/L (15-37); Alanine Aminotransfer ALT/SGPT 23 U/L (13-56); Albumin, Serum 3.5 g/dL (3.2-5.0); Alkaline Phosphatase 57 U/L (45-117); Anion Gap 4 (5-15); BUN 15 mg/dL (7-18); BUN/Creat Ratio 22.7 RATIO (10-20); Calcium,Total 8.6 mg/dL (8.5-10.1); Chloride 103 mmol/L (98-107); Creatinine, Serum 0.66 mg/dL (0.55-1.02); EST Glomerular Filtration Rate 115 mL/min (>60); Est Glom Filt Rate - Afr Amer 140 mL/min (>60); Globulin 3.9 g/dL (2.2-4.2); Glucose 88 mg/dL (74-106); Potassium 4.2 mmol/L (3.5-5.1); Protein, Total 7.4 g/dL (6.4-8.2); Sodium Level 138 mmol/L (136-145); T4 Free Direct 1.02 ng/dL (0.76-1.46)
== END | disposition home or self-care (01) ==
LOC: LAB 09:07
PROVIDERS: PCP Family Medicine; Referring Provider Nurse Practitioner Family; Visit Provider Nurse Practitioner Family
DX: R53.83 Other fatigue (principal); Z13.21 Encounter for screening for nutritional disorder; Z13.1 Encounter for screening for diabetes mellitus
CPT/HCPCS: 36415; 80053; 82306; 84439; 84443; 85025

== ENCOUNTER → 2023-11-06 | Outpatient (CLI) | payer BC, SELFPAY ==
--- NOTE | 2023-11-06 16:57 | US_ITS ---
HISTORY: Left axillary painful lump. TECHNIQUE: Routine and color duplex imaging of the left axilla. 17 images. COMPARISON: None. FINDINGS: No cystic or solid mass demonstrated in the left axilla. US/Ext Non Vasc Limited/Soft Tiss IMPRESSION: Unremarkable sonographic examination of the left axilla. Electronically Signed: Margaux Hernandez MD at 8:53 EDT ,
--- NOTE | 2023-11-06 16:57 | US_ITS ---
HISTORY: pelvic pain. TECHNIQUE: Transabdominal and transvaginal pelvic ultrasound was performed with ball scale and color Doppler evaluation. 92 images. COMPARISON: 10/24/2022. FINDINGS: UTERUS: 9.1 x 4.4 x 5.9 cm. Anteverted. ENDOMETRIAL THICKNESS: 9 mm. RIGHT OVARY: 2.2 x 2.4 x 3.2 cm with small follicles. Doppler color flow demonstrated. 1.7 cm involuting cyst. LEFT OVARY: 1.6 x 2 x 2.8 cm with small follicles. Doppler color flow demonstrated. No adnexal masses. FREE FLUID: None. URINARY BLADDER: Unremarkable and well distended at 525 cc. US/Pelvic w/ Transvaginal IMPRESSION: Small involuting right ovarian cyst. Electronically Signed: Margaux Hernandez MD at 8:52 EDT ,
== END | disposition home or self-care (01) ==
PROVIDERS: PCP Family Medicine; Referring Provider Nurse Practitioner Family; Visit Provider Nurse Practitioner Family
DX: R22.32 Localized swelling, mass and lump, left upper limb (principal); R53.83 Other fatigue; R10.2 Pelvic and perineal pain
CPT/HCPCS: 76830; 76856; 76882

== ENCOUNTER → 2024-01-02 | Outpatient (CLI) | payer BC, SELFPAY ==
--- NOTE | 2024-01-02 08:48 | US_ITS ---
INDICATION: ovarian cyst follow up EXAMINATION: Ultrasound US Pelvis Non OB Complete With Transvaginal Imaging TECHNIQUE: Transabdominal and transvaginal pelvic ultrasound was performed. Grayscale, spectral waveform, and color flow Doppler evaluation of the adnexa. COMPARISON: November 06, 2023 FINDINGS: UTERUS: The uterus measures 9.2 x 4.2 x 5.8 cm. There is no uterine mass. The endometrial stripe measures 7.5 mm in AP diameter which is within normal limits. RIGHT OVARY: 2.9 x 1.8 x 2.3 cm. Non-enlarged, normal echogenicity. There is interval resolution of the cysts visualized on the prior examination. There is normal arterial inflow and venous outflow present in the right ovary. LEFT OVARY: 3.2 x 2.1 x 2.2 cm. Non-enlarged, normal echogenicity. There appears to be a corpus luteal cyst within the left ovary. There is normal arterial inflow and venous outflow present in the left ovary. FREE FLUID: None. US/Pelvic w/ Transvaginal IMPRESSION: Interval resolution of right ovarian cyst. Within normal limits pelvic ultrasound. Electronically Signed: Annette Antoine MD at 10:27 EDT ,
== END | disposition home or self-care (01) ==
PROVIDERS: PCP Family Medicine; Referring Provider Nurse Practitioner Family; Visit Provider Nurse Practitioner Family
DX: R10.2 Pelvic and perineal pain (principal); N83.209 Unspecified ovarian cyst, unspecified side
CPT/HCPCS: 76830; 76856

== ENCOUNTER → 2024-05-18 | Outpatient (CLI) | payer BC, SELFPAY ==
--- NOTE | 2024-05-18 08:40 | RAD_ITS ---
PROCEDURE: ARTHROGRAM HIP REASON FOR EXAM: RULE OUT LABRUM TEAR TECHNIQUE: The procedure as well as the benefits and possible complications were explained to the patient. Informed consent was obtained. The patient was in the supine position. The overlying skin was prepped and draped in the usual sterile fashion. Following local anesthetic application and under direct fluoroscopic guidance, a 22 gauge spinal needle was placed into the left hip joint. 2 cc of [id number]-300 was injected for confirmation. Following this, 10 cc of dilute MRI contrast was injected for MRI examination. Fluoroscopy: 41 seconds. 1 image was submitted. COMPARISON: None. FINDINGS: Successful left hip arthrogram for MRI examination. No immediate complication was identified. RAD/Arthrogram Hip IMPRESSION: Successful left hip arthrogram for MRI examination. The patient tolerated the procedure well. Reading Location: [place] [id number]
[2024-05-18] MEDS: Lidocaine 2% (5ml sdv) 5 ML VIAL.MPF INFILT (09:07)
[2024-05-18] MEDS: Iopamidol 10 ML in Syringe 1 EACH 600 ML INTRAARTIC (09:08)
[2024-05-18] MEDS: Gadoterate Meglumine Diluted 10 ML, Iopamidol 5 ML, Lidocaine 1% (20 ml mdv) 5 ML, Epin... INTRAARTIC (09:08)
--- NOTE | 2024-05-18 19:09 | MRI_ITS ---
PROCEDURE: MRI left hip arthrogram REASON FOR EXAM: Pain, labral tear TECHNIQUE: Multisequence multiplanar MR images of the left hip were obtained after the administration of intra-articular contrast. COMPARISON: None. FINDINGS Linear contrast extending through the anterosuperior labrum. Tiny chondrolabral contrast cleft also noted along the superior labrum. No associated paralabral cysts. Normal femoral head neck morphology. Articular cartilage is intact. Round ligament is intact. No joint bodies. Negative for fracture or marrow replacement. Major tendons about the hip are intact. MRI/Lower Ext/Jt Only/W Contrast IMPRESSION: Anterosuperior and superior labral tears as above. No chondral abnormalities Reading Location: [place]
== END | disposition home or self-care (01) ==
LOC: RAD 08:40
PROVIDERS: PCP Family Medicine; Referring Provider Orthopaedic Surgery Sports Medicine; Visit Provider Orthopaedic Surgery Sports Medicine
DX: M25.552 Pain in left hip (principal)
CPT/HCPCS: 27093; 73525; 73722; Q9967